=== PATIENT | female | born 1980 | race Caucasian/White ===

== ENCOUNTER 2019-03-26 12:14 | Emergency (ER) | payer SELFPAY ==
[2019-03-26] MEDS ORDERED: ONDANSETRON HCL INJ/PF 4 MG/2 ML SDV IV ONE (13:03)
[2019-03-26] MEDS ORDERED: RINGERS SOLUTION,LACTATED 1,000 ML IV ONE (13:03)
--- NOTE | 2019-03-26 13:06 | ER Document Report ---
ED Medical Screen (RME) - General Chief Complaint: Nausea/Vomiting Stated Complaint: DIZZINESS Time Seen by Provider: 03/26/19 12:47 Notes: Patient is a 39 year old female who presents the emergency department with a chief complaint of nausea, vomiting, diarrhea. Patient she states that her symptoms started this morning. She has been vomiting up bile and small specks of blood. States that she tried to drink some orange juice and water, but can vomiting the amount. She denies any fever. Patient states that her last menstrual cycle was mid February. Patient states that she drinks vodka daily and states that the amount varies. Denies any abdominal surgeries. Denies pain. Exam: Soft nontender abdomen. I have greeted and performed a rapid initial assessment of this patient. A comprehensive ED assessment and evaluation of the patient, analysis of test results and completion of medical decision making process will be conducted by an additional ED providers. TRAVEL OUTSIDE OF THE [place] IN LAST 30 DAYS: No - Related Data Allergies/Adverse Reactions: No Known Allergies Allergy (Verified 03/26/19 12:43) Past Medical History - Past Medical History Cardiac Medical History: Reports: Hx Hypertension Musculoskeltal Medical History: Reports Hx Musculoskeletal Deformity, Reports Hx Musculoskeletal Trauma Traumatic Medical History: Reports: Hx Fractures - right foot Past Surgical History: Reports: Hx Myringotomy - Immunizations Immunizations up to date: Yes Hx Diphtheria, Pertussis, Tetanus Vaccination: Yes - <5 years Physical Exam - Vital signs Vitals: Temp Pulse Resp BP Pulse Ox 97.7 F 133 H 17 146/104 H 100 03/26/19 12:20 03/26/19 12:20 03/26/19 12:20 03/26/19 12:20 03/26/19 12:20 Course - Vital Signs Vital signs: Temp Pulse Resp BP Pulse Ox 97.7 F 133 H 17 146/104 H 100 03/26/19 12:20 03/26/19 12:20 03/26/19 12:20 03/26/19 12:20 03/26/19 12:20
[2019-03-26 13:28] LABS: ABSOLUTE BASOPHILS # (AUTO) 0.1 10^3/uL (0.0-0.2); ABSOLUTE EOSINOPHILS # (AUTO) 0.1 10^3/uL (0.0-0.6); ABSOLUTE LYMPHOCYTES (AUTO) 1.5 10^3/uL (0.5-4.7); ABSOLUTE MONOCYTES (AUTO) 0.5 10^3/uL (0.1-1.4); ABSOLUTE NEUT (AUTO) 11.9 10^3/uL (1.7-8.2); EOSINOPHILS % (AUTO) 0.5 % (0-6); HEMATOCRIT 47.4 % (36.0-47.0); HEMOGLOBIN 16.3 g/dL (12.0-15.5); LYMPHOCYTES % (AUTO) 10.8 % (13-45); MEAN CORPUSCULAR HEMOGLOBIN 34.8 pg (27.0-33.4); MEAN CORPUSCULAR HGB CONC 34.3 g/dL (32.0-36.0); MEAN CORPUSCULAR VOLUME 102 fl (80-97); MONOCYTES % (AUTO) 3.6 % (3-13); PLATELET COUNT 278 10^3/uL (150-450); RED BLOOD COUNT 4.67 10^6/uL (3.72-5.28); RED CELL DISTRIBUTION WIDTH 15.7 % (11.5-14.0); SEGMENTED NEUTROPHILS % (AUTO) 84.1 % (42-78); TOTAL CELLS COUNTED % (AUTO) 100 %; WHITE BLOOD COUNT 14.2 10^3/uL (4.0-10.5)
[2019-03-26 13:42] LABS: ALBUMIN 4.7 g/dL (3.5-5.0); ALKALINE PHOSPHATASE 126 U/L (38-126); ANION GAP 14 (5-19); ASPARTATE AMINO TRANSFERASE 88 U/L (14-36); BILIRUBIN,DIRECT 0.4 mg/dL (0.0-0.4); BILIRUBIN,TOTAL 1.7 mg/dL (0.2-1.3); BLOOD UREA NITROGEN 10 mg/dL (7-20); CALCIUM 9.7 mg/dL (8.4-10.2); CARBON DIOXIDE 29 mmol/L (22-30); CHLORIDE 99 mmol/L (98-107); GLUCOSE 126 mg/dL (75-110); POTASSIUM 4.1 mmol/L (3.6-5.0); TOTAL PROTEIN 8.9 g/dL (6.3-8.2)
[2019-03-26] MEDS ORDERED: METOCLOPRAMIDE HCL INJ/PF 10 MG/2 ML SDV IV ONE (16:31)
[2019-03-26] MEDS ORDERED: LORAZEPAM INJ 2 MG/1 ML VIAL IV ONE (16:32)
--- NOTE | 2019-03-26 18:15 | RADIOLOGY REPORT (SQ) ---
EXAM DESCRIPTION: U/S ABDOMEN LIMITED W/O DOP COMPLETED DATE/TIME: 03/26/2019 6:02 pm REASON FOR STUDY: evaluate GB COMPARISON: None. TECHNIQUE: Dynamic and static grayscale images acquired of the abdomen and recorded on PACS. Additio nal selected color Doppler and spectral images recorded. LIMITATIONS: None. FINDINGS: PANCREAS: No masses. Visualized pancreatic duct normal caliber. LIVER: Slightly increased echogenicity. No masses. LIVER VASCULATURE: Normal directional flow of the main portal vein and hepatic veins. GALLBLADDER: Small gallstone is present. Normal wall thickness. No pericholecystic fluid. ULTRASOUND-DETECTED WELSEY'S SIGN: Negative. INTRAHEPATIC DUCTS AND COMMON DUCT: CBD and intrahepatic ducts normal caliber. No filling defects. INFERIOR VENA CAVA: Normal flow. AORTA: No aneurysm. RIGHT KIDNEY: Normal size, 10.6 cm. Normal echogenicity. No solid or suspicious masses. No hydroneph rosis. No calcifications. PERITONEAL AND RIGHT PLEURAL SPACE: No ascites or effusions. OTHER: No other significant findings. IMPRESSION: Cholelithiasis with no evidence of cholecystitis. Mild fatty infiltration of the liver. TECHNICAL DOCUMENTATION: JOB ID: [id number] [employer]- All Rights Reserved Reading location - IP/workstation name: [email or web address]
[2019-03-26] MEDS ORDERED: LORAZEPAM 1 MG TABLET PO ONE (19:17)
[2019-03-26 19:47] LABS: APPEARANCE,URINE CLOUDY; BILIRUBIN,URINE SMALL (NEGATIVE); COLOR,URINE AMBER; GLUCOSE, URINE NEGATIVE (NEGATIVE); KETONES,URINE TRACE mg/dL (NEGATIVE); LEUKOCYTE ESTERASE,URINE MODERATE (NEGATIVE); NITRITE,URINE NEGATIVE (NEGATIVE); PROTEIN,URINE 100 mg/dL (NEGATIVE); URINE SPECIFIC GRAVITY 1.019
[2019-03-26] MEDS ORDERED: CEFTRIAXONE 1 GM/D5W RTU 1 GM/50 ML RTUPB IV ONE (20:34)
--- NOTE | 2019-03-26 21:31 | ER Document Report ---
Entered by JASON YOUNG SCRIBE 03/26/19 1618 Acting as scribe for:NUVIA SANDERS DO ED General - General Chief Complaint: Nausea/Vomiting Stated Complaint: DIZZINESS Time Seen by Provider: 03/26/19 12:47 Mode of Arrival: Ambulatory Information source: Patient Notes: Patient is a 39-year-old female that presents to the emergency department today with complaints of vomiting, lightheadedness, headache, diarrhea, and feeling shaky. Patient mentions that she drinks heavily daily. Patient states her last drink was last night. Patient states she has never been in alcohol withdrawal to to her knowledge. Patient denies abdominal pain or sick contacts. TRAVEL OUTSIDE OF THE [place] IN LAST 30 DAYS: No - Related Data Allergies/Adverse Reactions: No Known Allergies Allergy (Verified 03/26/19 12:43) Past Medical History - General Information source: Patient - Social History Smoking Status: Never Smoker Cigarette use (# per day): No Frequency of alcohol use: Heavy Lives with: Family Family History: Reviewed & Not Pertinent, CAD, Hyperlipidemia, Hypertension, Malignancy Patient has suicidal ideation: No Patient has homicidal ideation: No - Past Medical History Cardiac Medical History: Reports: Hx Hypertension Musculoskeletal Medical History: Reports Hx Musculoskeletal Deformity, Reports Hx Musculoskeletal Trauma Traumatic Medical History: Reports: Hx Fractures - right foot Past Surgical History: Reports: Hx Myringotomy - Immunizations Immunizations up to date: Yes Hx Diphtheria, Pertussis, Tetanus Vaccination: Yes - <5 years Review of Systems - Review of Systems Constitutional: No symptoms reported EENT: No symptoms reported Cardiovascular: See HPI, Lightheaded Respiratory: No symptoms reported Gastrointestinal: See HPI, Diarrhea, Vomiting. denies: Abdominal pain Genitourinary: No symptoms reported Female Genitourinary: No symptoms reported Musculoskeletal: No symptoms reported Skin: No symptoms reported Hematologic/Lymphatic: No symptoms reported Neurological/Psychological: See HPI, Headaches -: Yes All other systems reviewed and negative Physical Exam - Vital signs Vitals: Temp Pulse Resp BP Pulse Ox 97.7 F 133 H 17 146/104 H 100 03/26/19 12:20 03/26/19 12:20 03/26/19 12:20 03/26/19 12:20 03/26/19 12:20 Interpretation: Hypertensive, Tachycardic - General General appearance: Alert In distress: Mild - Tremulousness - HEENT Head: Normocephalic, Atraumatic Eyes: Normal Pupils: PERRL Mucous membranes: Dry - Respiratory Respiratory status: No respiratory distress Chest status: Nontender Breath sounds: Normal Chest palpation: Normal - Cardiovascular Rhythm: Tachycardia Heart sounds: Normal auscultation Murmur: No - Abdominal Inspection: Normal Distension: No distension Bowel sounds: Normal Tenderness: Nontender Organomegaly: No organomegaly - Back Back: Normal, Nontender - Extremities General upper extremity: Normal inspection, Nontender, Normal color, Normal ROM, Normal temperature General lower extremity: Normal inspection, Nontender, Normal color, Normal ROM, Normal temperature, Normal weight bearing. No: German's sign - Neurological Neuro grossly intact: Yes Cognition: Normal Orientation: AAOx4 [place] Coma Scale Eye Opening: Spontaneous [place] Coma Scale Verbal: Oriented [place] Coma Scale Motor: Obeys Commands [place] Coma Scale Total: 15 Speech: Normal Motor strength normal: LUE, RUE, LLE, RLE Sensory: Normal - Psychological Associated symptoms: Normal affect, Normal mood - Skin Skin Temperature: Warm Skin Moisture: Dry Skin Color: Normal Course - Re-evaluation Re-evalutation: 03/26/19 21:29 Patient is a 39-year-old female who comes in with vomiting and diarrhea. No abdominal pain. Patient drinks vodka daily. Elevated bilirubin. Ultrasound obtained. Cholelithiasis but no cholecystitis. Patient is tremulous, mildly tachycardic and hypertensive. States that she is tried to stop drinking before and got this way. No history of seizures. Patient initially stated that she wanted to drink alcohol and now states that she is uncertain but would like to try to quit. Regardless, symptoms have resolved. No further vomiting or diarrhea. Taking p.o. without difficulty and blood pressure, heart rate down, tremulousness is resolved with Ativan. Patient will be discharged home with medication for nausea as needed, urinary tract infection although the patient has no symptoms. However WBCs and leukoesterase in urine. Urine culture sent. She also be given a prescription for Keflex. Patient wants to go home and would actually prefer to be go home although she has been offered admission. Stable for discharge. Return if any further concerns or symptoms. - Vital Signs Vital signs: Temp Pulse Resp BP Pulse Ox 97.7 F 133 H 15 136/100 H 98 03/26/19 12:20 03/26/19 12:20 03/26/19 20:01 03/26/19 20:01 03/26/19 20:01 - Laboratory Result Diagrams: 03/26/19 13:08 03/26/19 13:08 Laboratory results interpreted by me: 03/26/19 03/26/19 03/26/19 13:08 13:08 19:23 WBC 14.2 H Hgb 16.3 H Hct 47.4 H MCV 102 H MCH 34.8 H RDW 15.7 H Lymph % (Auto) 10.8 L Absolute Neuts (auto) 11.9 H Seg Neutrophils % 84.1 H Glucose 126 H Total Bilirubin 1.7 H AST 88 H Total Protein 8.9 H Urine Protein 100 H Urine Ketones TRACE H Urine Bilirubin SMALL H Urine Urobilinogen 2.0 H Ur Leukocyte Esterase MODERATE H - Diagnostic Test Radiology reviewed: Reports reviewed Discharge - Discharge Clinical Impression: Vomiting Qualifiers: Vomiting type: unspecified Vomiting Intractability: non-intractable Nausea presence: with nausea Qualified Code(s): R11.2 - Nausea with vomiting, unspecified UTI (urinary tract infection) Qualifiers: Urinary tract infection type: site unspecified Hematuria presence: without hematuria Qualified Code(s): N39.0 - Urinary tract infection, site not specified Alcohol withdrawal Qualifiers: Complication of substance-induced condition: uncomplicated Qualified Code(s): F10.230 - Alcohol dependence with withdrawal, uncomplicated Condition: Stable Disposition: HOME, SELF-CARE Instructions: Alcohol Withdrawl ([facility]), Family Physicians / Practices, Urinary Tract Infection ([facility]), Vomiting ([facility]) Prescriptions: Ondansetron [Zofran Odt 4 mg Tablet] 4 mg PO Q4HP PRN #30 tab.rapdis PRN Reason: Lorazepam [Ativan 1 mg Tablet] 1 mg PO Q6HP PRN #12 tablet PRN Reason: Cephalexin Monohydrate [Keflex 500 mg Capsule] 500 mg PO Q6H 10 Days capsule Metoclopramide HCl [Reglan 10 mg Tablet] 1 - 2 tab PO ASDIR PRN #25 tablet PRN Reason: I personally performed the services described in the documentation, reviewed and edited the documentation which was dictated to the scribe in my presence, and it accurately records my words and actions.
[2019-03-26 21:32] VITALS: BP 126/89
== END 2019-03-26 21:31 | disposition home or self-care (01) ==
LOC: ER 12:14
DX: F10.230 Alcohol dependence with withdrawal, uncomplicated (principal); N39.0 Urinary tract infection, site not specified; K80.20 Calculus of gallbladder without cholecystitis without obstruction; R11.2 Nausea with vomiting, unspecified; R42 Dizziness and giddiness; R51 Headache; R19.7 Diarrhea, unspecified; R79.89 Other specified abnormal findings of blood chemistry; I10 Essential (primary) hypertension; R00.0 Tachycardia, unspecified
CPT/HCPCS: 99284; 96361; 96375; 96365; 36415; 87086; 83690; 85025; 87088; 80053; 81001; 87186; 76705; J2765; J2060; J2405; J7120; J0696

== ENCOUNTER 2019-09-04 23:03 | Emergency (ER) | payer SELFPAY ==
[2019-09-04] MEDS ORDERED: ONDANSETRON HCL INJ/PF 4 MG/2 ML SDV IV ONE (23:20)
[2019-09-04] MEDS ORDERED: NORMAL SALINE 1000 ML 1,000 ML IV ONE (23:20)
--- NOTE | 2019-09-04 23:21 | ER Document Report ---
ED General - General Chief Complaint: Nausea/Vomiting/Diarrhea Stated Complaint: NAUSEA Notes: 39-year-old female presents with nausea and diarrhea onset this morning. Vomiting everything up that she tries eat including watermelon. No abdominal pain or cramping no fever no travel no foreign travel no food trucks or other questionable food intake or ill contacts. The patient has NO history of travel to high-risk locations for COVID-19 or contact with persons under investigation for or confirmed positive for COVID-19. TRAVEL OUTSIDE OF THE [place] IN LAST 30 DAYS: No - Related Data Allergies/Adverse Reactions: No Known Allergies Allergy (Verified 03/26/19 12:43) Home Medications: ADVIL Past Medical History - Social History Smoking Status: Never Smoker Family History: Reviewed & Not Pertinent, CAD, Hyperlipidemia, Hypertension, Malignancy Patient has suicidal ideation: No Patient has homicidal ideation: No - Past Medical History Cardiac Medical History: Reports: Hx Hypertension Musculoskeletal Medical History: Reports Hx Musculoskeletal Deformity, Reports Hx Musculoskeletal Trauma Traumatic Medical History: Reports: Hx Fractures - right foot Past Surgical History: Reports: Hx Myringotomy - Immunizations Immunizations up to date: Yes Hx Diphtheria, Pertussis, Tetanus Vaccination: Yes - <5 years Review of Systems - Review of Systems Notes: REVIEW OF SYSTEMS GEN: Denies fever, chills, weight loss ENT: Denies sore throat, nasal discharge, ear pain EYES: Denies blurry vision, eye pain, discharge CV: Denies chest pain, palpitations, edema RESP: Denies cough, shortness of breath, wheezing GI: See HPI a MSK: Denies joint pain/swelling, edema, SKIN: Denies rash, skin lesions LYMPH: Denies swollen glands/lymph nodes NEURO: Denies headache, focal weakness or numbness, dizziness PSYCH: Denies depression, suicidal or homicidal ideation PHYSICAL EXAMINATION General: No acute distress, well-nourished Head: Atraumatic, normocephalic ENT: Mouth normal, oropharynx moist, no exudates or tonsillar enlargement Eyes: Conjunctiva normal, pupils equal, lids normal Neck: No JVD, supple, no guarding CVS: Normal rate, regular rhythm, no murmurs Resp: No resp distress, equal and normal breath sounds bilaterally GI: Nondistended, soft, no tenderness to palpation, no rebound or guarding Ext: No deformities, no edema, normal range of motion in upper and lower ext Back: No CVA or midline TTP Skin: No rash, warm Lymphatic: No lymphadeopathy noted Neuro: Awake, alert. Face symmetric. GCS 15. Physical Exam - Vital signs Vitals: Pulse Ox 100 09/04/19 23:35 Course - Re-evaluation Re-evalutation: 09/04/19 23:21 Patient presents with nausea vomiting diarrhea with mild dehydration. Will place IV, treat symptoms and check labs but this seems very much like a contagious gastroenteritis or foodborne illness. He has no abdominal tenderness or indication for imaging at this point and no risk factors for C. difficile. 09/19/19 10:07 Labs unremarkable except mild lo K. Nontender on rpt Nayely PO DC home - Vital Signs Vital signs: Temp Pulse Resp BP Pulse Ox 98.1 F 96 17 146/94 H 100 09/05/19 00:45 09/05/19 00:45 09/05/19 00:45 09/05/19 00:45 09/05/19 00:45 - Laboratory Result Diagrams: 09/04/19 23:34 09/04/19 23:34 Laboratory results interpreted by me: 09/04/19 09/04/19 23:34 23:34 MCH 34.0 H RDW 14.8 H Potassium 3.3 L Chloride 97 L Discharge - Discharge Clinical Impression: Vomiting and diarrhea Condition: Good Disposition: HOME, SELF-CARE Instructions: Vomiting ([facility]) Additional Instructions: Follow-up in 3 to 5 days Prescriptions: Ondansetron [Ondansetron Odt] 8 mg PO Q8HP PRN #7 tab.rapdis PRN Reason: Forms: Return to Work
[2019-09-04 23:47] LABS: ABSOLUTE BASOPHILS # (AUTO) 0.1 10^3/uL (0.0-0.2); ABSOLUTE LYMPHOCYTES (AUTO) 1.5 10^3/uL (0.5-4.7); ABSOLUTE MONOCYTES (AUTO) 0.5 10^3/uL (0.1-1.4); ABSOLUTE NEUT (AUTO) 6.7 10^3/uL (1.7-8.2); BASOPHILS % (AUTO) 0.7 % (0-2); EOSINOPHILS % (AUTO) 0.2 % (0-6); HEMATOCRIT 43.2 % (36.0-47.0); HEMOGLOBIN 15.1 g/dL (12.0-15.5); MEAN CORPUSCULAR VOLUME 97 fl (80-97); MONOCYTES % (AUTO) 5.5 % (3-13); PLATELET COUNT 185 10^3/uL (150-450); RED BLOOD COUNT 4.45 10^6/uL (3.72-5.28); RED CELL DISTRIBUTION WIDTH 14.8 % (11.5-14.0); SEGMENTED NEUTROPHILS % (AUTO) 76.6 % (42-78); TOTAL CELLS COUNTED % (AUTO) 100 %; WHITE BLOOD COUNT 8.7 10^3/uL (4.0-10.5)
[2019-09-05 00:08] LABS: ANION GAP 15 (5-19); BLOOD UREA NITROGEN 8 mg/dL (7-20); CARBON DIOXIDE 28 mmol/L (22-30); CHLORIDE 97 mmol/L (98-107); GLUCOSE 101 mg/dL (75-110); POTASSIUM 3.3 mmol/L (3.6-5.0)
[2019-09-05 00:46] VITALS: BP 146/94
== END 2019-09-05 00:45 | disposition home or self-care (01) ==
LOC: ER 23:03
DX: R11.2 Nausea with vomiting, unspecified (principal); R19.7 Diarrhea, unspecified; E86.0 Dehydration; I10 Essential (primary) hypertension; Z79.1 Long term (current) use of non-steroidal anti-inflammatories (NSAID)
CPT/HCPCS: 99284; 96361; 96374; 36415; 85025; 80048; J2405; J7030

== ENCOUNTER 2019-10-15 04:03 | Emergency (ER) | payer SELFPAY ==
[2019-10-15] MEDS ORDERED: ONDANSETRON HCL INJ/PF 4 MG/2 ML SDV IV ONE (05:34)
--- NOTE | 2019-10-15 05:37 | ER Document Report ---
ED General - General Chief Complaint: Vomiting Stated Complaint: COUGH Time Seen by Provider: 10/15/19 05:19 Notes: 39-year-old healthy female presents to the emergency department with cyclic vomiting and chest pressure. Patient states she was sent home from work because she has had persistent vomiting for the last several hours. Patient states symptoms started at 7 PM. Patient is currently nauseated. Patient states that she also has chest pressure across her anterior chest that is slightly worse with breathing. Pain fevers or chills, denies any acute shortness of breath, denies diarrhea, denies urinary symptoms. No other complaints TRAVEL OUTSIDE OF THE [place] IN LAST 30 DAYS: No - Related Data Allergies/Adverse Reactions: No Known Allergies Allergy (Verified 03/26/19 12:43) Past Medical History - Social History Smoking Status: Current Every Day Smoker Chew tobacco use (# tins/day): No Frequency of alcohol use: Social Drug Abuse: Marijuana Family History: Reviewed & Not Pertinent, CAD, Hyperlipidemia, Hypertension, Malignancy Patient has suicidal ideation: No Patient has homicidal ideation: No - Past Medical History Cardiac Medical History: Reports: Hx Hypertension Musculoskeletal Medical History: Reports Hx Musculoskeletal Deformity, Reports Hx Musculoskeletal Trauma Traumatic Medical History: Reports: Hx Fractures - right foot Past Surgical History: Reports: Hx Myringotomy - Immunizations Immunizations up to date: Yes Hx Diphtheria, Pertussis, Tetanus Vaccination: Yes - <5 years Review of Systems - Review of Systems Constitutional: See HPI EENT: No symptoms reported Cardiovascular: See HPI Respiratory: See HPI Gastrointestinal: See HPI Genitourinary: No symptoms reported Female Genitourinary: No symptoms reported Musculoskeletal: See HPI Skin: No symptoms reported Hematologic/Lymphatic: No symptoms reported Neurological/Psychological: No symptoms reported Physical Exam - Vital signs Vitals: Temp Pulse Resp BP Pulse Ox 98.4 F 101 H 18 136/97 H 100 10/15/19 04:10 10/15/19 04:10 10/15/19 04:10 10/15/19 04:10 10/15/19 04:10 - Notes Notes: PHYSICAL EXAMINATION: Reviewed vital signs and charting by RN GENERAL: Alert, interacts well. No acute distress. HEAD: Normocephalic, atraumatic. EYES: Pupils equal and round. Extraocular movements intact. ENT: Oral mucosa moist, tongue midline. NECK: Full range of motion. Trachea midline. LUNGS: Clear to auscultation bilaterally, no wheezes, rales, or rhonchi. No respiratory distress. HEART: Very slightly tachycardic regular rhythm. No murmur ABDOMEN: soft, right upper quadrant tenderness to palpation, negative Wright sign, mild epigastric tenderness to palpation. No distention. Bowel sounds present EXTREMITIES: Moves all 4 extremities spontaneously. No edema, No cyanosis. PSYCH: Normal affect, normal mood. SKIN: Warm, dry, normal turgor. No rashes or lesions noted. Course - Re-evaluation Re-evalutation: 10/15/19 05:35 Patient is well-appearing and nontoxic. She does appear to be mildly dehydrated as she is mildly tachycardic and has had several episodes of vomiting. Differential includes enteritis versus hyperemesis secondary to cannabinoid use. I have very low suspicion for cardiac ischemia or cardiac etiology, but I will add a troponin. 10/15/19 06:48 Patient lab work returned and she has a total bilirubin of 3.2 and a direct bilirubin of 1.1. Lipase was added and a right upper quadrant ultrasound ordered to assess for a biliary pathology. 10/15/19 08:08 Patient signed out to Jesse Lowery NP. - Vital Signs Vital signs: Temp Pulse Resp BP Pulse Ox 98.4 F 101 H 18 136/97 H 100 10/15/19 04:25 10/15/19 04:10 10/15/19 04:10 10/15/19 04:10 10/15/19 04:10 - Laboratory Result Diagrams: 10/15/19 05:46 10/15/19 05:46 Laboratory results interpreted by me: 10/15/19 10/15/19 10/15/19 05:46 05:46 06:15 MCV 100 H MCH 35.5 H RDW 18.2 H Sodium 135.9 L Chloride 96 L Total Bilirubin 3.2 H Direct Bilirubin 1.1 H AST 147 H ALT 89 H Urine Protein 100 H Urine Ketones TRACE H Urine Blood SMALL H Urine Nitrite POSITIVE H Urine Bilirubin SMALL H Urine Urobilinogen 4.0 H Ur Leukocyte Esterase MODERATE H Discharge - Discharge Clinical Impression: Urinary tract infection Qualifiers: Urinary tract infection type: acute cystitis Hematuria presence: with hematuria Qualified Code(s): N30.01 - Acute cystitis with hematuria Vomiting Qualifiers: Vomiting type: unspecified Vomiting Intractability: non-intractable Nausea presence: with nausea Qualified Code(s): R11.2 - Nausea with vomiting, unspecified Abdominal pain Qualifiers: Abdominal location: upper abdomen, unspecified Qualified Code(s): R10.10 - Upper abdominal pain, unspecified Condition: Good Disposition: HOME, SELF-CARE Prescriptions: Cephalexin Monohydrate [Keflex 500 mg Capsule] 500 mg PO Q12H #20 capsule
[2019-10-15] MEDS ORDERED: NORMAL SALINE 1000 ML 1,000 ML IV ONE ×2 (05:58→07:22)
[2019-10-15 05:59] LABS: ABSOLUTE BASOPHILS # (AUTO) 0.1 10^3/uL (0.0-0.2); ABSOLUTE LYMPHOCYTES (AUTO) 1.6 10^3/uL (0.5-4.7); ABSOLUTE MONOCYTES (AUTO) 0.6 10^3/uL (0.1-1.4); ABSOLUTE NEUT (AUTO) 6.7 10^3/uL (1.7-8.2); BASOPHILS % (AUTO) 0.8 % (0-2); EOSINOPHILS % (AUTO) 0.3 % (0-6); HEMATOCRIT 42.1 % (36.0-47.0); LYMPHOCYTES % (AUTO) 17.6 % (13-45); MEAN CORPUSCULAR HEMOGLOBIN 35.5 pg (27.0-33.4); MEAN CORPUSCULAR HGB CONC 35.6 g/dL (32.0-36.0); MEAN CORPUSCULAR VOLUME 100 fl (80-97); MONOCYTES % (AUTO) 6.5 % (3-13); PLATELET COUNT 221 10^3/uL (150-450); RED BLOOD COUNT 4.23 10^6/uL (3.72-5.28); RED CELL DISTRIBUTION WIDTH 18.2 % (11.5-14.0); SEGMENTED NEUTROPHILS % (AUTO) 74.8 % (42-78); TOTAL CELLS COUNTED % (AUTO) 100 %
[2019-10-15 06:18] LABS: ALBUMIN 4.2 g/dL (3.5-5.0); ALKALINE PHOSPHATASE 96 U/L (38-126); ANION GAP 10 (5-19); ASPARTATE AMINO TRANSFERASE 147 U/L (14-36); BILIRUBIN,DIRECT 1.1 mg/dL (0.0-0.4); BILIRUBIN,TOTAL 3.2 mg/dL (0.2-1.3); BLOOD UREA NITROGEN 9 mg/dL (7-20); CALCIUM 9.1 mg/dL (8.4-10.2); CARBON DIOXIDE 30 mmol/L (22-30); CHLORIDE 96 mmol/L (98-107); GLUCOSE 86 mg/dL (75-110); POTASSIUM 3.6 mmol/L (3.6-5.0); TOTAL PROTEIN 7.5 g/dL (6.3-8.2)
[2019-10-15 06:49] LABS: APPEARANCE,URINE CLOUDY; BILIRUBIN,URINE SMALL (NEGATIVE); GLUCOSE, URINE NEGATIVE (NEGATIVE); KETONES,URINE TRACE mg/dL (NEGATIVE); LEUKOCYTE ESTERASE,URINE MODERATE (NEGATIVE); NITRITE,URINE POSITIVE (NEGATIVE); PROTEIN,URINE 100 mg/dL (NEGATIVE)
[2019-10-15 06:50] LABS: COLOR,URINE DARK YELLOW
--- NOTE | 2019-10-15 07:05 | RADIOLOGY REPORT (SQ) ---
AP Portable chest: 10/15/2019 6:04 AM CDT History: 39-year old patient with chest pain. Comparison: None available Findings: The cardiomediastinal silhouette is normal in size. No pneumothorax is seen. No acute airspace opacities are seen. No discrete pleural effusion is apparent. Impression: No acute airspace opacities are seen.
[2019-10-15] MEDS ORDERED: CEFTRIAXONE 1 GM/D5W RTU 1 GM/50 ML RTUPB IV ONE (07:23)
--- NOTE | 2019-10-15 08:27 | RADIOLOGY REPORT (SQ) ---
EXAM DESCRIPTION: U/S ABDOMEN LTD W/DOPPLER IMAGES COMPLETED DATE/TIME: 10/15/2019 7:31 am REASON FOR STUDY: RUQ/epigastric abd pain COMPARISON: None. TECHNIQUE: Dynamic and static grayscale images acquired of the abdomen and recorded on PACS. Additio nal selected color Doppler and spectral images recorded. Note: Exam does not meet criteria for a complete doppler/duplex scan LIMITATIONS: Study limited due to acoustical interference from fat or from air in the bowel. FINDINGS: PANCREAS: No visualized masses. Duct normal caliber as seen. LIVER: Echotexture is coarse with increased echogenicity consistent with fatty infiltration. LIVER VASCULATURE: Normal directional flow of the main portal vein and hepatic veins. GALLBLADDER: Gallstones. Normal wall thickness. No pericholecystic fluid. ULTRASOUND-DETECTED WESLEY'S SIGN: Negative. INTRAHEPATIC DUCTS AND COMMON DUCT: CBD and intrahepatic ducts normal caliber. No filling defects. INFERIOR VENA CAVA: Normal flow. AORTA: No aneurysm. RIGHT KIDNEY: Normal size. Normal echogenicity. No solid or suspicious masses. No hydronephrosis. No calcifications. PERITONEAL AND PLEURAL SPACES: No ascites or effusions. OTHER: No other significant finding. IMPRESSION: GALLSTONES. FATTY INFILTRATION OF THE LIVER. NO OTHER SIGNIFICANT FINDING IN THE VISUAL IZED ABDOMEN. TECHNICAL DOCUMENTATION: JOB ID: [id number] 2010 [employer]- All Rights Reserved Reading location - IP/workstation name: [email or web address]
--- NOTE | 2019-10-15 09:08 | ER Document Report ---
Doctor's Note Notes: 10/15/19 09:06 I evaluated the patient. She reports onset of nausea vomiting yesterday. No dysuria. Denies abdominal pain. I did review the prior records. Patient is noted to have a UTI she is currently receiving IV fluids and Rocephin. She states nausea is improved. On my exam patient has no abdominal pain that is reproducible especially in the lower abdomen or in the right upper quadrant. She was noted to have gallstones on her ultrasound without signs of cholecystitis. I discussed this at length with her. She will likely need outpatient surgical referral. She has no PCP. We will orally challenge the patient at this time, if she is able to keep fluids down will keep on antibiotics, nausea medication and plan for discharge to follow-up with PCP initially. Patient is in agreement with this plan
[2019-10-15 10:24] VITALS: BP 144/85
--- NOTE | 2019-10-15 15:28 | EKG REPORT ---
SEVERITY:- BORDERLINE ECG - SINUS RHYTHM BORDERLINE T ABNORMALITIES, DIFFUSE LEADS BORDERLINE PROLONGED QT INTERVAL : Confirmed by: Donna Marcelino MD 15-Oct-2019 15:27:39
== END 2019-10-15 10:26 | disposition home or self-care (01) ==
LOC: ER 04:03
DX: K80.20 Calculus of gallbladder without cholecystitis without obstruction (principal); N30.01 Acute cystitis with hematuria; R11.2 Nausea with vomiting, unspecified; R07.9 Chest pain, unspecified; R10.10 Upper abdominal pain, unspecified; E86.0 Dehydration; R00.0 Tachycardia, unspecified
CPT/HCPCS: 93005; 99285; 96361; 96375; 96365; 36415; 87040; 83690; 85025; 81025; 80053; 81001; 71045; 76705; 93976; 93010; J2405; J7030; J0696

== ENCOUNTER 2019-11-03 13:17 | Emergency (ER) | payer SELFPAY ==
[2019-11-03] MEDS ORDERED: NORMAL SALINE 1000 ML 1,000 ML IV ONE (13:45)
[2019-11-03] MEDS ORDERED: ONDANSETRON HCL INJ/PF 4 MG/2 ML SDV IV ONE (13:45)
[2019-11-03 13:53] LABS: ABSOLUTE BASOPHILS # (AUTO) 0.1 10^3/uL (0.0-0.2); ABSOLUTE EOSINOPHILS # (AUTO) 0.1 10^3/uL (0.0-0.6); ABSOLUTE MONOCYTES (AUTO) 0.5 10^3/uL (0.1-1.4); ABSOLUTE NEUT (AUTO) 5.8 10^3/uL (1.7-8.2); BASOPHILS % (AUTO) 1.3 % (0-2); EOSINOPHILS % (AUTO) 0.9 % (0-6); HEMATOCRIT 43.5 % (36.0-47.0); HEMOGLOBIN 15.4 g/dL (12.0-15.5); LYMPHOCYTES % (AUTO) 31.3 % (13-45); MEAN CORPUSCULAR HEMOGLOBIN 35.9 pg (27.0-33.4); MEAN CORPUSCULAR HGB CONC 35.4 g/dL (32.0-36.0); MEAN CORPUSCULAR VOLUME 101 fl (80-97); MONOCYTES % (AUTO) 5.3 % (3-13); PLATELET COUNT 360 10^3/uL (150-450); RED BLOOD COUNT 4.29 10^6/uL (3.72-5.28); RED CELL DISTRIBUTION WIDTH 17.4 % (11.5-14.0); SEGMENTED NEUTROPHILS % (AUTO) 61.2 % (42-78); TOTAL CELLS COUNTED % (AUTO) 100 %; WHITE BLOOD COUNT 9.5 10^3/uL (4.0-10.5)
[2019-11-03 14:02] LABS: APPEARANCE,URINE CLOUDY; BILIRUBIN,URINE SMALL (NEGATIVE); COLOR,URINE AMBER; GLUCOSE, URINE NEGATIVE (NEGATIVE); KETONES,URINE TRACE mg/dL (NEGATIVE); LEUKOCYTE ESTERASE,URINE MODERATE (NEGATIVE); NITRITE,URINE NEGATIVE (NEGATIVE); PROTEIN,URINE 100 mg/dL (NEGATIVE); URINE SPECIFIC GRAVITY 1.019
[2019-11-03 14:12] LABS: ALBUMIN 4.2 g/dL (3.5-5.0); ALKALINE PHOSPHATASE 100 U/L (38-126); ANION GAP 13 (5-19); ASPARTATE AMINO TRANSFERASE 153 U/L (14-36); BILIRUBIN,DIRECT 0.5 mg/dL (0.0-0.4); BILIRUBIN,TOTAL 1.5 mg/dL (0.2-1.3); BLOOD UREA NITROGEN 9 mg/dL (7-20); CALCIUM 9.2 mg/dL (8.4-10.2); CARBON DIOXIDE 29 mmol/L (22-30); CHLORIDE 97 mmol/L (98-107); GLUCOSE 94 mg/dL (75-110); POTASSIUM 3.5 mmol/L (3.6-5.0); TOTAL PROTEIN 7.7 g/dL (6.3-8.2)
[2019-11-03] MEDS ORDERED: FAMOTIDINE INJ/PF 20 MG/2 ML SDV IV ONE (14:15)
[2019-11-03] MEDS ORDERED: LORAZEPAM INJ 2 MG/1 ML VIAL IV ONE (14:15)
--- NOTE | 2019-11-03 14:24 | ER Document Report ---
ED General - General Chief Complaint: Weakness Stated Complaint: WEAKNESS,VOMITING,NAUSEA Time Seen by Provider: 11/03/19 13:46 TRAVEL OUTSIDE OF THE [place] IN LAST 30 DAYS: No - HPI Notes: Chief complaint: Weakness, anxiety and nausea HPI: 39-year-old female seen in this emergency department about 3 weeks ago with GI symptoms and found to have a UTI, cholelithiasis and some changes consistent with fatty infiltration of the liver on ultrasound. She took an oral antibiotic briefly but says she had to stop this because it "just made her feel bad". She is back now with flulike symptoms. 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 She has had no direct contact with anyone known to be positive for COVID-19. Says that she may have had a fever but did not take this. She felt somewhat chilled overnight. Nauseated without vomiting. Dull headache. Diffuse myalgias. No dysuria. Patient admits that she drinks 3 to 4 ounces of vodka each evening. She denies any drug use. Patient felt ill at work today and had her son drive her here. - Related Data Allergies/Adverse Reactions: No Known Allergies Allergy (Verified 03/26/19 12:43) Past Medical History - General Information source: Patient - Social History Smoking Status: Current Every Day Smoker Frequency of alcohol use: Heavy Drug Abuse: None Lives with: Family Family History: Reviewed & Not Pertinent, CAD, Hyperlipidemia, Hypertension, Malignancy - Past Medical History Cardiac Medical History: Reports: Hx Hypertension Endocrine Medical History: Reports: None Renal/ Medical History: Reports: Other - Recent treatment for UTI GI Medical History: Reports: Other - History cholelithiasis Musculoskeletal Medical History: Reports Hx Musculoskeletal Deformity, Reports Hx Musculoskeletal Trauma Traumatic Medical History: Reports: Hx Fractures - right foot Past Surgical History: Reports: Hx Myringotomy - Immunizations Immunizations up to date: Yes Hx Diphtheria, Pertussis, Tetanus Vaccination: Yes - <5 years Review of Systems - Review of Systems Notes: Constitutional: As per HPI. HENT: Negative for sore throat. Eyes: Negative for visual changes. Cardiovascular: Negative for chest pain. Respiratory: Negative for shortness of breath. No cough or sputum production. Gastrointestinal: As per HPI. Genitourinary: Negative for dysuria. Musculoskeletal: Diffuse myalgias. Skin: Negative for rash. Neurological: Dull headache and diffuse weakness. No focal weakness or numbness. 10 point ROS negative except as marked above and in HPI. Physical Exam - Vital signs Vitals: Temp Pulse Resp BP Pulse Ox 97.4 F 102 H 16 141/95 H 100 11/03/19 13:25 11/03/19 13:25 11/03/19 13:25 11/03/19 13:25 11/03/19 13:25 - Notes Notes: Remote Exam Using Telemedicine System GENERAL: Middle-age obese female who does not appear toxic but obviously does not feel well. SKIN: no rashes. HEAD: Normocephalic atraumatic. EYES: PERRL. EOMI. Conjunctivae and sclerae clear. NOSE: CLEAR. MOUTH: Moist mucosa. Good dentition. No stridor or edema. No drooling. NECK: Full ROM. No visible masses or thyromegaly. No JVD. BACK: Symmetrical. CHEST: Respirations unlabored. Expands symmetrical. ABDOMEN: Obese. Non-distended. No tenderness when I have the patient press over 4 quadrants of her abdomen and epigastrium. GENITALIA: Deferred. EXTREMITIES: No edema. NEUROLOGICAL: GCS 15. Alert and oriented x3. Mild tremor. Normal gait. Fluent speech. Cranial nerves II through XII intact. Motor and cerebellar normal. PSYCHIATRIC: Appropriate affect. Course - Re-evaluation Re-evalutation: 11/03/19 19:43 Patient's history reveals substantial alcohol intake chronically. Her transaminases are somewhat elevated similar to values noted on prior visit. She clearly had fatty changes in the liver on her previous gallbladder ultrasound. She does have some gallstones but her abdomen is nontender and she has no fever or elevation of white count. Also she is noted to have macrocytosis on her CBC additionally suggesting adverse effects of chronic alcohol ingestion. Her magnesium and potassium are both marginally low. Both of these were supplemented in the emergency department. She feels much better after these interventions and will be discharged home and given a work note for the next 3 days. Strongly advised to curtail her alcohol intake. - Vital Signs Vital signs: Temp Pulse Resp BP Pulse Ox 97.8 F 90 18 139/76 H 97 11/03/19 18:00 11/03/19 18:00 11/03/19 18:00 11/03/19 18:00 11/03/19 18:00 - Laboratory Result Diagrams: 11/03/19 13:40 11/03/19 13:40 Laboratory results interpreted by me: 11/03/19 11/03/19 11/03/19 13:40 13:40 13:40 MCV 101 H MCH 35.9 H RDW 17.4 H Potassium 3.5 L Chloride 97 L Total Bilirubin 1.5 H Direct Bilirubin 0.5 H AST 153 H ALT 98 H Urine Protein 100 H Urine Ketones TRACE H Urine Bilirubin SMALL H Urine Urobilinogen 4.0 H Ur Leukocyte Esterase MODERATE H Discharge - Discharge Clinical Impression: Alcoholic hepatitis without ascites, Hypokalemia, Hypomagnesemia Condition: Stable Disposition: HOME, SELF-CARE Additional Instructions: Alcoholic Hepatitis You have inflammation of the liver caused by alcohol. This is called "alcoholic hepatitis." Symptoms can include malaise, fatigue, lack of appetite, nausea and vomiting, dark urine, and jaundice. In the long run, alcohol damages the liver to cause cirrhosis. There is no cure for alcoholic hepatitis. The inflammation will go away if you stop drinking. While you are ill, you may receive medication to make you more comfortable. Do not drink alcohol, and don't take any drug or medication not approved by your doctor. Rest and try to eat a healthy diet. Call the doctor if vomiting or abdominal pain become severe. Prescriptions have been written for you today. You will be provided a work note for the next 3 days. Follow-up with your primary care or referral doctor as soon as possible. Return here as needed for new or worsening symptoms: Pain that is worsening or unimproved Uncontrolled vomiting High fever or shaking chills Overall worsening Prescriptions: Magnesium Oxide 400 mg PO DAILY #7 tablet Potassium Chloride 20 meq PO BID 7 Days #14 tab.er.prt Ondansetron [Zofran Odt 4 mg Tablet] 1 - 2 tab PO Q4H PRN #15 tab.rapdis PRN Reason: For Nausea/Vomiting Forms: Return to Work
[2019-11-03] MEDS ORDERED: POTASSIUM CHLORIDE 10 MEQ TABLET.ER PO ONE (16:30)
[2019-11-03] MEDS ORDERED: CEFTRIAXONE 1 GM/D5W RTU 1 GM/50 ML RTUPB IV ONE (16:30)
[2019-11-03] MEDS: MAGNESIUM SULFATE/D5W 1 GM/100 ML RTUPB IV SCH ×2 (16:48→17:51)
[2019-11-03 19:50] VITALS: BP 127/84
--- NOTE | 2019-11-03 22:19 | EKG REPORT ---
SEVERITY:- BORDERLINE ECG - SINUS TACHYCARDIA PROBABLE LEFT ATRIAL ABNORMALITY BORDERLINE T ABNORMALITIES, DIFFUSE LEADS : Confirmed by: Ubaldo Maradiaga 03-Nov-2019 22:18:39
== END 2019-11-03 20:06 | disposition home or self-care (01) ==
LOC: ER 13:17
DX: K70.11 Alcoholic hepatitis with ascites (principal); E87.6 Hypokalemia; E83.42 Hypomagnesemia; R53.1 Weakness; R11.2 Nausea with vomiting, unspecified; F41.9 Anxiety disorder, unspecified; R51 Headache; R25.1 Tremor, unspecified; M79.10 Myalgia, unspecified site; F10.10 Alcohol abuse, uncomplicated; I10 Essential (primary) hypertension; F17.200 Nicotine dependence, unspecified, uncomplicated
CPT/HCPCS: 93005; 99283; 96361; 96375; 96365; 96367; 36415; 83690; 83735; 85025; 81025; 80053; 81001; 84484; 93010; J2060; J3475; J2405; J7030; S0028; J0696

== ENCOUNTER 2019-12-12 09:54 | Inpatient (IN) | payer SELFPAY ==
[2019-12-12 10:55] LABS: ABSOLUTE BASOPHILS # (AUTO) 0.1 10^3/uL (0.0-0.2); ABSOLUTE EOSINOPHILS # (AUTO) 0.1 10^3/uL (0.0-0.6); ABSOLUTE LYMPHOCYTES (AUTO) 2.1 10^3/uL (0.5-4.7); ABSOLUTE MONOCYTES (AUTO) 0.8 10^3/uL (0.1-1.4); ABSOLUTE NEUT (AUTO) 8.3 10^3/uL (1.7-8.2); BASOPHILS % (AUTO) 0.6 % (0-2); EOSINOPHILS % (AUTO) 0.8 % (0-6); HEMATOCRIT 39.9 % (36.0-47.0); LYMPHOCYTES % (AUTO) 18.6 % (13-45); MEAN CORPUSCULAR HEMOGLOBIN 35.1 pg (27.0-33.4); MEAN CORPUSCULAR HGB CONC 35.1 g/dL (32.0-36.0); MEAN CORPUSCULAR VOLUME 100 fl (80-97); MONOCYTES % (AUTO) 6.7 % (3-13); PLATELET COUNT 334 10^3/uL (150-450); RED BLOOD COUNT 3.99 10^6/uL (3.72-5.28); RED CELL DISTRIBUTION WIDTH 14.6 % (11.5-14.0); SEGMENTED NEUTROPHILS % (AUTO) 73.3 % (42-78); TOTAL CELLS COUNTED % (AUTO) 100 %; WHITE BLOOD COUNT 11.3 10^3/uL (4.0-10.5)
[2019-12-12 10:57] LABS: ALBUMIN 4.1 g/dL (3.5-5.0); ALKALINE PHOSPHATASE 75 U/L (38-126); ANION GAP 18 (5-19); ASPARTATE AMINO TRANSFERASE 77 U/L (14-36); BILIRUBIN,DIRECT 1.2 mg/dL (0.0-0.4); BILIRUBIN,TOTAL 2.4 mg/dL (0.2-1.3); BLOOD UREA NITROGEN 14 mg/dL (7-20); CALCIUM 9.6 mg/dL (8.4-10.2); CARBON DIOXIDE 27 mmol/L (22-30); CHLORIDE 93 mmol/L (98-107); CREATINE KINASE 26 U/L (30-135); GLUCOSE 91 mg/dL (75-110); POTASSIUM 3.1 mmol/L (3.6-5.0); TOTAL PROTEIN 7.5 g/dL (6.3-8.2)
[2019-12-12 11:08] LABS: CREATINE KINASE MB 0.22 ng/mL (<4.55)
[2019-12-12 11:17] LABS: TROPONIN I < 0.012 ng/mL
[2019-12-12] MEDS ORDERED: ONDANSETRON HCL INJ/PF 4 MG/2 ML SDV IV ONE (11:31)
--- NOTE | 2019-12-12 11:34 | RADIOLOGY REPORT (SQ) ---
EXAM DESCRIPTION: CHEST SINGLE VIEW IMAGES COMPLETED DATE/TIME: 12/12/2019 11:24 am REASON FOR STUDY: chest pain COMPARISON: 10/15/2019 EXAM PARAMETERS: NUMBER OF VIEWS: One view. TECHNIQUE: Single frontal radiographic view of the chest acquired. RADIATION DOSE: NA LIMITATIONS: None. FINDINGS: LUNGS AND PLEURA: No opacities, masses or pneumothorax. No pleural effusion. MEDIASTINUM AND HILAR STRUCTURES: No masses. Contour normal. HEART AND VASCULAR STRUCTURES: Heart normal in size. Normal vasculature. BONES: No acute findings. HARDWARE: None in the chest. OTHER: No other significant finding. IMPRESSION: NO ACUTE RADIOGRAPHIC FINDING IN THE CHEST. TECHNICAL DOCUMENTATION: JOB ID: [id number] 2010 [employer]- All Rights Reserved Reading location - IP/workstation name: [email or web address]
[2019-12-12] MEDS ORDERED: NORMAL SALINE 1000 ML 1,000 ML IV ONE ×2 (13:29→17:20)
[2019-12-12] MEDS ORDERED: POTASSIUM CHLORIDE 10 MEQ TABLET.ER PO ONE (13:29)
--- NOTE | 2019-12-12 13:31 | ER Document Report ---
ED General <RENÉ REYES - Last Filed: 12/12/19 22:00> - General Mode of Arrival: Medic Information source: Patient, Friend TRAVEL OUTSIDE OF THE [place] IN LAST 30 DAYS: No - HPI Onset: This morning Onset/Duration: Worse Quality of pain: No pain Associated symptoms: Nausea, Weakness. denies: Chest pain, Nonproductive cough, Productive cough, Diarrhea, Fever, Headache, Vomiting, Shortness of breath Exacerbated by: Denies Relieved by: Denies Similar symptoms previously: No Recently seen / treated by doctor: No <SYEDA SAM - Last Filed: 12/13/19 20:32> - General Chief Complaint: Chest Pressure Stated Complaint: NUMBNESS Time Seen by Provider: 12/12/19 13:03 Notes: Patient presents with vague complaints. Patient complains of malaise and weakness. Patient states that her legs are numb feeling and she has tingling to her lips. Patient states that today she has not been able to walk as she is afraid that she is going to fall. Patient states yesterday she was ambulating without difficulty. Patient reports some mild nausea without vomiting or diarrhea. Patient denies any shortness of breath. Patient denies any chest pain, abdominal pain or back pain symptoms. EMS report states that patient had chest pain although patient denies this at this time. 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 Lives with: Family Family History: Reviewed & Not Pertinent, CAD, Hyperlipidemia, Hypertension, Malignancy Patient has homicidal ideation: No - Medical History Medical History: Negative Musculoskeletal Medical History: Reports Hx Musculoskeletal Deformity, Reports Hx Musculoskeletal Trauma Traumatic Medical History: Reports: Hx Fractures - right foot Past Surgical History: Reports: Hx Myringotomy - Immunizations Immunizations up to date: Yes Hx Diphtheria, Pertussis, Tetanus Vaccination: Yes - <5 years <SYEDA SAM - Last Filed: 12/13/19 20:32> Review of Systems - Review of Systems Constitutional: Malaise, Weakness. denies: Fever, Recent illness EENT: No symptoms reported. denies: Throat pain Cardiovascular: No symptoms reported. denies: Chest pain, Dizziness, Lightheaded Respiratory: No symptoms reported. denies: Cough, Short of breath Gastrointestinal: Nausea. denies: Abdominal pain, Diarrhea, Vomiting Genitourinary: No symptoms reported. denies: Dysuria, Flank pain Female Genitourinary: Vaginal bleeding Musculoskeletal: Other - Weakness to lower extremities Skin: No symptoms reported Hematologic/Lymphatic: No symptoms reported Neurological/Psychological: Weakness, Gait changes, Numbness - Bilateral lower extremities, Tingling - Lips <SYEDA SAM - Last Filed: 12/13/19 20:32> Physical Exam - General General appearance: Appears well, Alert In distress: None - HEENT Head: Normocephalic, Atraumatic Eyes: Normal Conjunctiva: Normal Nasal: Normal Mouth/Lips: Normal Mucous membranes: Normal Pharynx: Normal Neck: Normal, Supple. No: Lymphadenopathy - Respiratory Respiratory status: No respiratory distress Chest status: Nontender Breath sounds: Normal. No: Rales, Rhonchi, Stridor, Wheezing Chest palpation: Normal - Cardiovascular Rhythm: Regular Heart sounds: S1 appreciated, S2 appreciated Murmur: No - Abdominal Inspection: Obese Distension: No distension Bowel sounds: Normal Tenderness: Nontender Organomegaly: No organomegaly - Back Back: Normal, Nontender. 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 - Psychological Associated symptoms: Normal affect, Normal mood - Skin Skin Temperature: Warm Skin Moisture: Dry Skin Color: Normal <SYEDA SAM - Last Filed: 12/13/19 20:32> - Vital signs Vitals: Resp 15 12/12/19 10:00 Course - Laboratory Result Diagrams: 12/12/19 10:16 12/12/19 10:16 - Diagnostic Test Radiology reviewed: Image reviewed, Reports reviewed <RENÉ REYES - Last Filed: 12/12/19 22:00> - Laboratory Result Diagrams: 12/13/19 06:00 12/13/19 06:00 - EKG Interpretation by Me EKG shows normal: Sinus rhythm When compared to previous EKG there are: Changes noted <SYEDA SAM - Last Filed: 12/13/19 20:32> - Re-evaluation Re-evalutation: 12/12/19 20:13 She returned from MRI. 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 There is a bruise to the right toe we will x-ray the toe. coal gasification technician states she did walk from the chair but was losing her balance when she got to the bed and stubbed her toe. 12/12/19 21:38 I have completed a rectal exam [facility] She did have good rectal tone. I attempted to stand her and she stood for about 3 to 4 seconds and then stated that her legs were giving out on her and she did become weight and I lowered her to the ground. (RENÉ REYES) 12/12/19 15:55 Patient sitting in room. Patient presently denies any chest pain abdominal pain nausea or vomiting. Patient complains of generalized weakness and malaise. Patient states unable to put into words exactly how she is feeling at this time. 12/12/19 17:00 Attempted to ambulate patient at bedside, patient with ataxia. Patient with good strength when lying on the stretcher. Patient knows what month it is and where she is out although is unable to state who the current president is. 12/12/19 17:48 Spoke with patient's boyfriend Tae at her request. Tae states that yamil luna has something seriously wrong with her although he states that she has been here several times to the ER and they have not found any significant problem. He states that normally she can walk without difficulty and now she is having difficulty with ambulation. He states that something is wrong with her although he is uncertain what it may be. Consulted with Dr. Mijares, Dr. Mijares to bedside for examination. When patient initially questioned she denied any pain symptoms although when he specifically asked that she had back pain she did complain of lower back pain symptoms. No midline spinal tenderness, patient does have left SI tenderness. Dr. Green advises obtaining MRI of thoracic and lumbar spine with contrast. 12/12/19 20:12 Report and handoff given to Melanie Reyes SHIRRING TENDER (SYEDA SAM) - Vital Signs Vital signs: Temp Pulse Resp BP Pulse Ox 97.9 F 90 17 119/79 100 12/13/19 15:16 12/13/19 15:16 12/13/19 15:16 12/13/19 15:16 12/13/19 15:16 - Laboratory Laboratory results interpreted by me: 12/12/19 12/12/19 12/12/19 10:16 10:16 16:30 WBC 11.3 H MCV 100 H MCH 35.1 H RDW 14.6 H Absolute Neuts (auto) 8.3 H Potassium 3.1 L Chloride 93 L Creatinine 0.46 L Total Bilirubin 2.4 H Direct Bilirubin 1.2 H AST 77 H ALT 63 H Ammonia Creatine Kinase 26 L Urine Protein 100 H Urine Ketones 80 H Urine Blood LARGE H Urine Nitrite POSITIVE H Urine Bilirubin SMALL H Urine Urobilinogen 4.0 H Ur Leukocyte Esterase MODERATE H 12/12/19 21:46 WBC MCV MCH RDW Absolute Neuts (auto) Potassium Chloride Creatinine Total Bilirubin Direct Bilirubin AST ALT Ammonia < 8.7 L Creatine Kinase Urine Protein Urine Ketones Urine Blood Urine Nitrite Urine Bilirubin Urine Urobilinogen Ur Leukocyte Esterase - EKG Interpretation by Me Additional EKG results interpreted by me: 12/12/19 19:17 Patient with sinus rhythm rate of 96, QTC 491 with some borderline prolongation, patient does have T depression in lead V3 which is different as compared to previous EKG (SYEDA SAM) Discharge - Discharge Admitting Provider: Nikolas (Hospitalist) Unit Admitted: Medical Floor <RENÉ REYES - Last Filed: 12/12/19 22:00> <SYEDA SAM - Last Filed: 12/13/19 20:32> - Discharge Clinical Impression: Conversion reaction Disposition: ADMITTED INPATIENT
[2019-12-12 13:41] LABS: ALCOHOL < 10 mg/dL (NONE DETECTED)
[2019-12-12 16:57] LABS: APPEARANCE,URINE SLIGHTLY-CLOUDY; BILIRUBIN,URINE SMALL (NEGATIVE); COLOR,URINE AMBER; GLUCOSE, URINE NEGATIVE (NEGATIVE); KETONES,URINE 80 mg/dL (NEGATIVE); LEUKOCYTE ESTERASE,URINE MODERATE (NEGATIVE); NITRITE,URINE POSITIVE (NEGATIVE); PROTEIN,URINE 100 mg/dL (NEGATIVE)
[2019-12-12 17:14] LABS: URINE AMPHETAMINES SCREEN NEGATIVE; URINE BARBITURATES SCREEN NEGATIVE; URINE BENZODIAZEPINES SCREEN NEGATIVE; URINE COCAINE SCREEN NEGATIVE; URINE METHADONE SCREEN NEGATIVE; URINE PHENCYCLIDINE SCREEN NEGATIVE
[2019-12-12 17:15] LABS: URINE MARIJUANA (THC) SCREEN UNCONFIRMED POSITIVE
[2019-12-12] MEDS ORDERED: CEFTRIAXONE 1 GM/D5W RTU 1 GM/50 ML RTUPB IV ONE (17:20)
--- NOTE | 2019-12-12 17:41 | RADIOLOGY REPORT (SQ) ---
EXAM DESCRIPTION: CT HEAD WITHOUT IMAGES COMPLETED DATE/TIME: 12/12/2019 5:31 pm REASON FOR STUDY: weakness COMPARISON: None. TECHNIQUE: Axial images acquired through the brain without intravenous contrast. Images reviewed wi th bone, brain and subdural windows. Additional sagittal and coronal reconstructions were generated. Images stored on PACS. All CT scanners at this facility use dose modulation, iterative reconstruction, and/or weight based d osing when appropriate to reduce radiation dose to as low as reasonably achievable (ALARA). [facility]: Dose Right [facility]: CareDose [facility]: Dose Right [facility]: Teradose 4D [facility]: [employer] RADIATION DOSE: CT Rad equipment meets quality standard of care and radiation dose reduction techniq ues were employed. CTDIvol: 48.6 mGy. DLP: 855 mGy-cm. mGy. LIMITATIONS: None. FINDINGS: VENTRICLES: Normal size and contour. CEREBRUM: No masses. No hemorrhage. No midline shift. No evidence for acute infarction. Normal gra y/white matter differentiation. No areas of low density in the white matter. CEREBELLUM: No masses. No hemorrhage. No alteration of density. No evidence for acute infarction. EXTRAAXIAL SPACES: No fluid collections. No masses. ORBITS AND GLOBE: No intra- or extraconal masses. Normal contour of globe without masses. CALVARIUM: No fracture. PARANASAL SINUSES: No fluid or mucosal thickening. SOFT TISSUES: No mass or hematoma. OTHER: No other significant finding. IMPRESSION: NORMAL BRAIN CT WITHOUT CONTRAST. EVIDENCE OF ACUTE STROKE: NO. COMMENT: Quality ID # [id number]: Final reports with documentation of one or more dose reduction techniques (e.g., Automated exposure control, adjustment of the mA and/or kV according to patient size, use of iterative reconstruction technique) TECHNICAL DOCUMENTATION: JOB ID: [id number] 2010 [employer]- All Rights Reserved Reading location - IP/workstation name: [email or web address]
--- NOTE | 2019-12-12 17:54 | RADIOLOGY REPORT (SQ) ---
EXAM DESCRIPTION: U/S ABDOMEN LIMITED W/O DOP IMAGES COMPLETED DATE/TIME: 12/12/2019 5:44 pm REASON FOR STUDY: cp, elevated bilirubin COMPARISON: 10/15/2019 TECHNIQUE: Dynamic and static grayscale images acquired of the abdomen and recorded on PACS. Parisho rick selected color Doppler and spectral images recorded. LIMITATIONS: None. FINDINGS: PANCREAS: No masses. Visualized pancreatic duct normal caliber. LIVER: Increased echogenicity. No masses. LIVER VASCULATURE: Normal directional flow of the main portal vein and hepatic veins. GALLBLADDER: There is a small amount of sludge in the gallbladder. No gallstones are seen. No wall thickening or pericholecystic fluid. ULTRASOUND-DETECTED WESLEY'S SIGN: Negative. INTRAHEPATIC DUCTS AND COMMON DUCT: CBD and intrahepatic ducts normal caliber. No filling defects. AORTA: No aneurysm. RIGHT KIDNEY: Normal size, 9.9 cm. Normal echogenicity. No solid or suspicious masses. No hydronephr osis. No calcifications. PERITONEAL AND RIGHT PLEURAL SPACE: No ascites or effusions. OTHER: No other significant findings. IMPRESSION: Hepatic steatosis. There is a small amount of sludge in the gallbladder. No gallstones are seen. TECHNICAL DOCUMENTATION: JOB ID: [id number] 2010 [employer]- All Rights Reserved Reading location - IP/workstation name: [email or web address]
--- NOTE | 2019-12-12 20:45 | RADIOLOGY REPORT (SQ) ---
EXAM DESCRIPTION: MR LUMBAR SPINE WITHOUT THEN WITH IV CONTRAST COMPLETED DATE/TME: 12/12/2019 17:57 CLINICAL HISTORY: 39 years Female ataxia, back pain COMPARISON: None. TECHNIQUE: Multiplanar and multisequence imaging obtained through the lumbar spine with and without IV contrast. FINDINGS: Straightening of the normal lordosis. There is loss of height and signal in the L3-4 L4-5 and L5-S1 disc interspaces consistent with disc desiccation. Annular tear posteriorly at L4-5. Hemangioma at S1. No geographic marrow lesion or marrow edema. Conus ends at T12-L1 and appears unremarkable. The canal appears congenitally narrowed. Motion artifact on the axial images limits evaluation. L1-L2 level is unremarkable. Mild disc bulging and facet arthropathy at L2-3 without central canal or neural foraminal narrowing. L3-4: There is generalized bulging of the disc and facet arthropathy with moderate narrowing of the central canal and neural foramina left greater than right. L4-5: Generalized bulging of the disc with a broad-based central protrusion. Facet arthropathy results in mild bilateral neural foraminal stenosis. There is mild central canal narrowing. L5-S1: Generalized bulging of the disc and facet arthropathy with small central protrusion. There is moderate neural foraminal stenosis left greater than right. On the postcontrast imaging no significant abnormal enhancement is within the vertebral bodies or the canal. Small amount of enhancement is seen along facets which is likely related to degenerative and inflammatory change this is most notable about the left facet at L3-4, L1-2 and T12-L1 levels and on the right at L3-4. IMPRESSION: Mild degenerative disc disease as described, with moderate central canal and neural foraminal narrowing at L3-4 Small amount of inflammatory sinus facet disease at multiple levels Moderate neural foraminal stenosis at L5-S1
--- NOTE | 2019-12-12 20:46 | RADIOLOGY REPORT (SQ) ---
EXAM DESCRIPTION: XR TOES 2 OR MORE VIEWS COMPLETED DATE/TME: 12/12/2019 20:12 CLINICAL HISTORY: 39 years Female pain injury great toe COMPARISON: None. TECHNIQUE: Right toe, three views FINDINGS: No acute fractures or dislocations are identified. No osseous destructive lesions. No radiopaque foreign object noted. IMPRESSION: No acute fracture is identified.
--- NOTE | 2019-12-12 20:50 | RADIOLOGY REPORT (SQ) ---
PROCEDURE: CLINICAL HISTORY: 39 years Female ataxia, back pain COMPARISON: None. TECHNIQUE: Multiplanar and multisequence imaging obtained through the thoracic spine with and without IV contrast. FINDINGS: There is normal thoracic alignment and kyphosis. Signal in the thoracic cord appears unremarkable. No geographic marrow lesion or evidence of marrow edema. There is significant motion artifact on the axial images which compromises evaluation. No evidence to suggest central canal stenosis or HNP. No evidence of abnormal enhancement IMPRESSION: No acute abnormality in the thoracic spine
[2019-12-12] MEDS ORDERED: DEXAMETHASONE SOD PHOS INJ 10 MG/1 ML VIAL IV ONE (21:17)
[2019-12-12] MEDS ORDERED: KETOROLAC TROMETHAMINE INJ/PF 30 MG/1 ML SDV IV ONE (21:17)
[2019-12-12] MEDS ORDERED: FAMOTIDINE 20 MG TABLET PO SCH (23:45)
[2019-12-12] MEDS ORDERED: OLANZAPINE 5 MG TABLET PO SCH (23:45)
[2019-12-12] MEDS ORDERED: MAG HYDROX/AL HYDROX/SIMETH SUSP 30 ML UDCUP PO PRN (23:49)
[2019-12-12] MEDS ORDERED: MAGNESIUM HYDROXIDE SUSP 30 ML UDCUP PO PRN (23:49)
[2019-12-12] MEDS ORDERED: ONDANSETRON HCL INJ/PF 4 MG/2 ML SDV IV PRN (23:49)
[2019-12-12] MEDS ORDERED: HYDRALAZINE HCL INJ/PF 20 MG/1 ML SDV IV PRN (23:55)
[2019-12-12] MEDS ORDERED: ACETAMINOPHEN 325 MG TABLET PO PRN (23:55)
[2019-12-12] MEDS ORDERED: MELATONIN 5 MG TABLET PO PRN (23:55)
[2019-12-12] MEDS ORDERED: GUAIFENESIN SYRP 200 MG/10 ML UDC PO PRN (23:55)
[2019-12-13] MEDS ORDERED: OLANZAPINE 5 MG TABLET PO ONE (00:45)
[2019-12-13] MEDS ORDERED: FAMOTIDINE 20 MG TABLET PO ONE (00:45)
--- NOTE | 2019-12-13 03:49 | PDOC H&P ---
History of Present Illness Admission Date/PCP: 12/12/19 22:05 No local PCP Patient complains of: Weakness of legs History of Present Illness: NUVIA GALLAGHER is a 39 year old female who presented the emergency room via EMS with the acute inability to walk due to bilateral leg weakness. She admits that she was well yesterday and last night before going to bed but woke this morning unable to walk due to severe weakness in her bilateral lower extremities. Her lower extremity weakness was accompanied by a mild headache and numbness and tingling in her oral labia and lower extremities. Her lower extremity weakness was associated with malaise, weakness and mild nausea. She denies other associated or accompanying signs and symptoms. She admits a prior similar episode in which her symptoms lasted 3 days and then resolved spontaneously. She initially attributed her symptoms to consuming too much alcohol on the previous evening, but then later changed her mind to thinking that may be she "hurt something" while she was moving from one residence to another. She has not identified any additional aggravating or ameliorating factors for her lower extremity weakness. In the emergency room she was found to have a normal CT scan of the head and a contrast MRI of the thoracic and ladonna mbar spine revealed only chronic changes with no explanation for acute bilateral lower extremity dysfunction. Exam by the emergency room provider showed the patient to have sensation and seemingly normal strength and neurologic function of the bilateral lower extremities however when the patient was asked to stand with assistance she was able to stand only for a few seconds and she was unable to walk due to the weakness. Patient was subsequently admitted to hospital for further evaluation treatment. Past Medical History Cardiac Medical History: Reports: Hypertension Denies: Coronary Artery Disease, Myocardial Infarction Pulmonary Medical History: Denies: Asthma, Chronic Obstructive Pulmonary Disease (COPD) EENT Medical History: Denies: Cataracts, Ears - Hearing aids Neurological Medical History: Denies: Hemorrhagic CVA, Ischemic CVA, Seizures Endocrine Medical History: Reports: Obesity Denies: Diabetes Mellitus Type 1, Diabetes Mellitus Type 2, Hyperthyroidism, Hypothyroidism Renal/ Medical History: Denies: Chronic Kidney Disease, Nephrolithiasis Malignancy Medical History: Reports: None GI Medical History: Denies: Cirrhosis, Crohn's Disease, Hepatitis, Peptic Ulcer Disease, Ulcerative Colitis Musculoskeltal Medical History: Reports: Other - Degenerative disc disease of the spine with chronic back pain Denies: Fibromyalgia, Gout Skin Medical History: Denies: Eczema, Psoriasis Psychiatric Medical History: Denies: Alcohol Dependency, Substance Abuse, Tobacco Dependency Traumatic Medical History: Reports: None Hematology: Denies: Anemia, Bleeding Tendencies Infectious Medical History: Reports: None Past Surgical History Past Surgical History: Reports: Other - Myringotomy Social History Information Source: Patient Lives with: Family Smoking Status: Never Smoker Electronic Cigarette use?: No Frequency of Alcohol Use: Heavy Hx Recreational Drug Use: No Drugs: None Hx Prescription Drug Abuse: No - Advance Directive Resuscitation Status: Full Code Surrogate healthcare decision maker:: Edda Rowe Family History Family History: CAD, Hyperlipidemia, Hypertension, Malignancy Parental Family History Reviewed: Yes Children Family History Reviewed: No Sibling(s) Family History Reviewed.: Yes Medication/Allergy Home Medications: Hydrocodone Bit/Acetaminophen [Vicodin 5-500 mg Tablet] 1 tab PO ASDIR PRN #15 tablet 11/02/12 No Home Medications 1 11/02/12 Acyclovir 800 mg PO 5XD 7 Days tab 01/30/15 Acyclovir/Hydrocortisone [Xerese 5%-1% Cream] 1 applic TP 5XD #1 pkg 01/30/15 Hydrocodone/Acetaminophen [Pharr 5-325 mg Tablet] 1 tab PO Q6HP PRN #14 tablet 01/30/15 Cephalexin Monohydrate [Keflex 500 mg Capsule] 500 mg PO Q6H 10 Days capsule 03/26/19 Lorazepam [Ativan 1 mg Tablet] 1 mg PO Q6HP PRN #12 tablet 03/26/19 Metoclopramide HCl [Reglan 10 mg Tablet] 1 - 2 tab PO ASDIR PRN #25 tablet 02/04 Ondansetron [Zofran Odt 4 mg Tablet] 4 mg PO Q4HP PRN #30 tab.rapdis 03/26/19 Ondansetron [Ondansetron Odt] 8 mg PO Q8HP PRN #7 tab.rapdis 09/04/19 Cephalexin Monohydrate [Keflex 500 mg Capsule] 500 mg PO Q12H #20 capsule 10/15/19 Ondansetron [Zofran Odt 4 mg Tablet] 1 - 2 tab PO Q4H PRN #15 tab.rapdis 10/15/19 Magnesium Oxide 400 mg PO DAILY #7 tablet 11/03/19 Ondansetron [Zofran Odt 4 mg Tablet] 1 - 2 tab PO Q4H PRN #15 tab.rapdis 11/03/19 Potassium Chloride 20 meq PO BID 7 Days #14 tab.er.prt 11/03/19 Allergies/Adverse Reactions: No Known Allergies Allergy (Verified 03/26/19 12:43) Review of Systems Constitutional: PRESENT: as per HPI, weakness. ABSENT: chills, fever(s) Eyes: ABSENT: visual disturbances, other - Eye pain Ears: ABSENT: hearing changes, other - Ear pain Nose, Mouth, and Throat: PRESENT: as per HPI, headache(s). ABSENT: sore throat Cardiovascular: ABSENT: chest pain, palpitations Respiratory: ABSENT: cough, dyspnea Gastrointestinal: PRESENT: nausea. ABSENT: abdominal pain, constipation, diarrhea, vomiting Genitourinary: ABSENT: dysuria, hematuria Musculoskeletal: PRESENT: as per HPI, muscle weakness. ABSENT: back pain, joint swelling Integumentary: ABSENT: pruritus, rash Neurological: PRESENT: as per HPI, abnormal gait, numbness, tingling, weakness. ABSENT: confusion, convulsions, memory loss, syncope Psychiatric: ABSENT: anxiety, depression Endocrine: ABSENT: cold intolerance, heat intolerance Hematologic/Lymphatic: ABSENT: easy bleeding, easy bruising Allergic/Immunologic: ABSENT: seasonal rhinorrhea Physical Exam Vital Signs: Temp Pulse Resp BP Pulse Ox 98.4 F 11 L 128/87 H 100 12/12/19 10:21 12/12/19 22:01 12/12/19 22:01 12/12/19 22:01 Intake & Output 12/10/19 12/11/19 12/12/19 23:59 23:59 23:59 Intake Total 2049 Balance 2049 Weight 77.111 kg General appearance: PRESENT: no acute distress, cooperative, disheveled, obese, other - Inconsistent in her recitation events, also inconsistent in her history Head exam: PRESENT: atraumatic, normocephalic Eye exam: PRESENT: conjunctiva pink. ABSENT: conjunctival injection, scleral icterus Ear exam: PRESENT: normal external ear exam. ABSENT: bleeding, drainage Mouth exam: PRESENT: dry mucosa, neck supple Neck exam: ABSENT: thyromegaly, tracheal deviation Respiratory exam: PRESENT: clear to auscultation russel, symmetrical, unlabored Cardiovascular exam: PRESENT: RRR. ABSENT: clicks, gallop, rubs Pulses: PRESENT: normal radial pulses, normal dorsalis pedis pul Vascular exam: PRESENT: normal capillary refill. ABSENT: pallor GI/Abdominal exam: PRESENT: normal bowel sounds, soft Rectal exam: PRESENT: deferred Extremities exam: ABSENT: joint swelling, pedal edema Musculoskeletal exam: PRESENT: full ROM, normal inspection. ABSENT: deformity, dislocation Neurological exam: PRESENT: alert, reflexes normal, abnormal gait - Patient refuses due to weakness of her legs, CN II-XII grossly intact, other - Frequently confused and offers different answers to the same question when posed later.. ABSENT: motor sensory deficit Psychiatric exam: PRESENT: appropriate affect, normal mood, other - Tends to be vague and inconsistent when trying to relate events or describe her complaints, seems confused at times Skin exam: PRESENT: dry, intact, warm. ABSENT: jaundice, rash, urticaria Results Laboratory Results: 12/12/19 10:16 12/12/19 10:16 12/12/19 12/12/19 12/12/19 10:16 10:16 10:16 WBC 11.3 H RBC 3.99 Hgb 14.0 Hct 39.9 MCV 100 H MCH 35.1 H MCHC 35.1 RDW 14.6 H Plt Count 334 Seg Neutrophils % 73.3 Sodium 138.0 Potassium 3.1 L Chloride 93 L Carbon Dioxide 27 Anion Gap 18 BUN 14 Creatinine 0.46 L Est GFR ( Amer) > 60 Glucose 91 Calcium 9.6 Magnesium 1.7 Total Bilirubin 2.4 H AST 77 H Alkaline Phosphatase 75 Ammonia Total Protein 7.5 Albumin 4.1 Lipase 50.3 TSH Urine Color Urine Appearance Urine pH Ur Specific Massena Urine Protein Urine Glucose (UA) Urine Ketones Urine Blood Urine Nitrite Ur Leukocyte Esterase Urine WBC (Auto) Urine RBC (Auto) 12/12/19 12/12/19 12/12/19 10:16 16:30 21:46 WBC RBC Hgb Hct MCV MCH MCHC RDW Plt Count Seg Neutrophils % Sodium Potassium Chloride Carbon Dioxide Anion Gap BUN Creatinine Est GFR ( Amer) Glucose Calcium Magnesium Total Bilirubin AST Alkaline Phosphatase Ammonia < 8.7 L Total Protein Albumin Lipase TSH 2.73 Urine Color JOSE Urine Appearance SLIGHTLY-CLOUDY Urine pH 6.0 Ur Specific [place] 1.020 Urine Protein 100 H Urine Glucose (UA) NEGATIVE Urine Ketones 80 H Urine Blood LARGE H Urine Nitrite POSITIVE H Ur Leukocyte Esterase MODERATE H Urine WBC (Auto) 44 Urine RBC (Auto) 37 12/12/19 12/12/19 12/12/19 10:16 10:16 13:32 Creatine Kinase 26 L CK-MB (CK-2) 0.22 Troponin I < 0.012 < 0.012 Impressions: Chest X-Ray 12/12/19 10:29 IMPRESSION: NO ACUTE RADIOGRAPHIC FINDING IN THE CHEST. Abdomen Ultrasound 12/12/19 14:30 IMPRESSION: Hepatic steatosis. There is a small amount of sludge in the gallbladder. No gallstones are seen. Head CT 12/12/19 16:57 IMPRESSION: NORMAL BRAIN CT WITHOUT CONTRAST. EVIDENCE OF ACUTE STROKE: NO. Lumbar Spine MRI 12/12/19 17:57 IMPRESSION: Mild degenerative disc disease as described, with moderate central canal and neural foraminal narrowing at L3-4 Small amount of inflammatory sinus facet disease at multiple levels Moderate neural foraminal stenosis at L5-S1 Thoracic Spine MRI 12/12/19 17:57 IMPRESSION: No acute abnormality in the thoracic spine Toe X-Ray 12/12/19 20:12 IMPRESSION: No acute fracture is identified. 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, acute episode, without psychological stressor Is this a current diagnosis for this admission?: Yes (3) Urinary tract infection Qualifiers: Urinary tract infection type: site unspecified Hematuria presence: without hematuria Qualified Code(s): N39.0 - Urinary tract infection, site not specified Is this a current diagnosis for this admission?: Yes (4) Hypertension Qualifiers: Hypertension type: essential hypertension Qualified Code(s): I10 - Essential (primary) hypertension Is this a current diagnosis for this admission?: Yes (5) Obesity (BMI 30.0-34.9) Is this a current diagnosis for this admission?: Yes - Plan Summary Summary: Patient is admitted to the medical floor where she will receive routine supportive and symptomatic cares. A psychiatry consultation with Rahul Salgado will be obtained. Patient will be restarted on olanzapine 10 mg p.o. nightly. She will use Ativan 1 mg IV every 4 hours as needed for anxiety or agitation. She will be on a cardiac diet. CBCs, metabolic profiles and magnesium levels as well as other laboratory and/or radiographic evaluations will be obtained as needed. A physical therapy consultation will be obtained. Received a dose of Rocephin IV in the emergency room which will be continued empirically pending urine culture results. - Time Time Spent with patient: 15-24 minutes Medications reviewed and adjusted accordingly: Yes Anticipated discharge: Home - Inpatient Certification Based on my medical assessment, after consideration of the patient's comorbidities, presenting symptoms, or acuity I expect that the services needed warrant INPATIENT care.: Yes I certify that my determination is in accordance with my understanding of Medicare's requirements for reasonable and necessary INPATIENT services [42 CFR 412.3e].: Yes Medical Necessity: Need Close Monitoring Due to Risk of Patient Decompensation, Risk of Complication if Not Cared For in Hospital
[2019-12-13] MEDS: HEPARIN SOD (PORCINE) 5,000 UNIT/ML 1 ML VIAL SUBCUT SCH ×3 (05:57→21:49)
[2019-12-13 06:20] LABS: HEMATOCRIT 39.5 % (36.0-47.0); HEMOGLOBIN 13.7 g/dL (12.0-15.5); MEAN CORPUSCULAR HEMOGLOBIN 34.6 pg (27.0-33.4); MEAN CORPUSCULAR HGB CONC 34.6 g/dL (32.0-36.0); MEAN CORPUSCULAR VOLUME 100 fl (80-97); PLATELET COUNT 342 10^3/uL (150-450); RED BLOOD COUNT 3.95 10^6/uL (3.72-5.28); RED CELL DISTRIBUTION WIDTH 14.3 % (11.5-14.0); WHITE BLOOD COUNT 9.1 10^3/uL (4.0-10.5)
[2019-12-13 06:27] LABS: INTERNATIONAL RATION (INR) 1.05; PROTHROMBIN TIME 13.7 SEC (11.4-15.4)
[2019-12-13 06:28] LABS: PARTIAL THROMBOPLASTIN TIME 28.2 SEC (23.5-35.8)
[2019-12-13 06:48] LABS: ALBUMIN 3.9 g/dL (3.5-5.0); ALKALINE PHOSPHATASE 74 U/L (38-126); ANION GAP 16 (5-19); ASPARTATE AMINO TRANSFERASE 71 U/L (14-36); BILIRUBIN,DIRECT 1.1 mg/dL (0.0-0.4); BILIRUBIN,TOTAL 1.9 mg/dL (0.2-1.3); BLOOD UREA NITROGEN 9 mg/dL (7-20); CARBON DIOXIDE 24 mmol/L (22-30); CHLORIDE 99 mmol/L (98-107); GLUCOSE 128 mg/dL (75-110); PHOSPHORUS 3.5 mg/dL (2.5-4.5); TOTAL PROTEIN 7.5 g/dL (6.3-8.2)
[2019-12-13 06:49] LABS: POTASSIUM 4.1 mmol/L (3.6-5.0)
[2019-12-13 06:58] LABS: FREE T3 2.27 pg/mL (2.77-5.27)
[2019-12-13 07:12] LABS: THYROID STIMULATING HORMONE 0.61 uIU/mL (0.47-4.68)
[2019-12-13] MEDS: FAMOTIDINE 20 MG TABLET PO SCH ×2 (09:39→21:50)
[2019-12-13] MEDS: DOCUSATE SODIUM 100 MG CAPSULE PO SCH ×2 (09:39→18:31)
[2019-12-13] MEDS ORDERED: CEFTRIAXONE 1 GM/D5W RTU 1 GM/50 ML RTUPB IV SCH (18:00)
--- NOTE | 2019-12-13 18:01 | PDOC PROGRESS REPORT ---
Subjective Progress Note for:: 12/13/19 Subjective:: No adverse events overnight. No new complaints. She still cannot give me a really good history. She said "my legs and my back" about 15 times during our conversation. She still complains of tingling and paresthesias in her extremities and trouble with her memory. Apparently it all started about the time she started working at [employer] a couple of weeks ago. Reason For Visit: CONVERSION DISORDER WITH WEAKNESS Physical Exam Vital Signs: Temp Pulse Resp BP Pulse Ox 97.9 F 90 17 119/79 100 12/13/19 15:16 12/13/19 15:16 12/13/19 15:16 12/13/19 15:16 12/13/19 15:16 Intake & Output 12/12/19 12/13/19 12/14/19 06:59 06:59 06:59 Intake Total 2250 118 Output Total 550 Balance 1700 118 Weight 68.3 kg General appearance: PRESENT: no acute distress, cooperative, disheveled, obese Head exam: PRESENT: atraumatic, normocephalic Eye exam: PRESENT: EOMI, PERRLA. ABSENT: conjunctival injection, nystagmus, scleral icterus Respiratory exam: PRESENT: clear to auscultation russel, symmetrical, unlabored. ABSENT: accessory muscle use, chest wall tenderness, crackles, prolonged expiratory phas, rhonchi, tachypnea, wheezes Cardiovascular exam: PRESENT: RRR, +S1, +S2 Pulses: PRESENT: normal carotid pulses Vascular exam: PRESENT: normal capillary refill GI/Abdominal exam: PRESENT: normal bowel sounds, soft. ABSENT: distended, g uarding, rebound, tenderness Extremities exam: ABSENT: clubbing, pedal edema Musculoskeletal exam: PRESENT: normal inspection. ABSENT: deformity Neurological exam: PRESENT: awake, oriented to person, oriented to place, orien christian to situation, CN II-XII grossly intact Psychiatric exam: PRESENT: flat affect Skin exam: PRESENT: dry, warm Results Laboratory Results: 12/13/19 06:00 12/13/19 06:00 12/12/19 12/13/19 12/13/19 21:46 06:00 06:00 WBC 9.1 RBC 3.95 Hgb 13.7 Hct 39.5 MCV 100 H MCH 34.6 H MCHC 34.6 RDW 14.3 H Plt Count 342 Sodium 139.2 Potassium 4.1 D Chloride 99 Carbon Dioxide 24 Anion Gap 16 BUN 9 Creatinine 0.36 L Est GFR ( Amer) > 60 Glucose 128 H Calcium 9.0 Phosphorus 3.5 Magnesium 1.7 Total Bilirubin 1.9 H AST 71 H Alkaline Phosphatase 74 Ammonia < 8.7 L Total Protein 7.5 Albumin 3.9 TSH Free T3 pg/mL 12/13/19 06:00 WBC RBC Hgb Hct MCV MCH MCHC RDW Plt Count Sodium Potassium Chloride Carbon Dioxide Anion Gap BUN Creatinine Est GFR ( Amer) Glucose Calcium Phosphorus Magnesium Total Bilirubin AST Alkaline Phosphatase Ammonia Total Protein Albumin TSH 0.61 Free T3 pg/mL 2.27 L 12/12/19 12/12/19 12/12/19 10:16 10:16 13:32 Creatine Kinase 26 L CK-MB (CK-2) 0.22 Troponin I < 0.012 < 0.012 Impressions: Chest X-Ray 12/12/19 10:29 IMPRESSION: NO ACUTE RADIOGRAPHIC FINDING IN THE CHEST. Abdomen Ultrasound 12/12/19 14:30 IMPRESSION: Hepatic steatosis. There is a small amount of sludge in the gallbladder. No gallstones are seen. Head CT 12/12/19 16:57 IMPRESSION: NORMAL BRAIN CT WITHOUT CONTRAST. EVIDENCE OF ACUTE STROKE: NO. Lumbar Spine MRI 12/12/19 17:57 IMPRESSION: Mild degenerative disc disease as described, with moderate central canal and neural foraminal narrowing at L3-4 Small amount of inflammatory sinus facet disease at multiple levels Moderate neural foraminal stenosis at L5-S1 Thoracic Spine MRI 12/12/19 17:57 IMPRESSION: No acute abnormality in the thoracic spine Toe X-Ray 12/12/19 20:12 IMPRESSION: No acute fracture is identified. Assessment and Plan - Diagnosis (1) Conversion disorder with weakness or paralysis, acute episode, without psychological stressor Is this a current diagnosis for this admission?: Yes Plan: This all seemed to start about the time she started back to work at [employer]. She had not been working quite some time prior. Is been an extensive work-up thus far that has been unrevealing. We will get an MRI of the brain just to rule out something like MS. (2) Hypertension Qualifiers: Hypertension type: essential hypertension Qualified Code(s): I10 - Essential (primary) hypertension Is this a current diagnosis for this admission?: Yes Plan: Blood pressures have improved without intervention (3) Obesity (BMI 30.0-34.9) Is this a current diagnosis for this admission?: Yes Plan: Strongly encourage lifestyle modification (4) Urinary tract infection Qualifiers: Urinary tract infection type: site unspecified Hematuria presence: without hematuria Qualified Code(s): N39.0 - Urinary tract infection, site not specified Is this a current diagnosis for this admission?: Yes Plan: She is on Rocephin. A gram-negative kel is growing out of the urine. - Plan Summary Summary: Patient is admitted to the medical floor where she will receive routine baker pportive and symptomatic cares. A psychiatry consultation with Rahul Salgado will be obtained. Patient will be restarted on olanzapine 10 mg p.o. nightly. She will use Ativan 1 mg IV every 4 hours as needed for anxiety or agitation. She will be on a cardiac diet. CBCs, metabolic profiles and magnesium levels as well as other laboratory and/or radiographic evaluations will be obtained as needed. A physical therapy consultation will be obtained. Received a dose of Rocephin IV in the emergency room which will be continued empirically pending urine culture results. - Time Time Spent with patient: 25-34 minutes
[2019-12-13] MEDS ORDERED: NORMAL SALINE 1000 ML 1,000 ML IV ONE (18:15)
--- NOTE | 2019-12-13 19:35 | EKG REPORT ---
SEVERITY:- BORDERLINE ECG - SINUS RHYTHM BORDERLINE PROLONGED QT INTERVAL : Confirmed by: Ubaldo Maradiaga 13-Dec-2019 19:35:16
[2019-12-13] MEDS: OLANZAPINE 5 MG TABLET PO SCH (21:50)
--- NOTE | 2019-12-13 23:41 | RADIOLOGY REPORT (SQ) ---
CLINICAL HISTORY: Paresthesias, memory lapses COMPARISON: None. TECHNIQUE: MR BRAIN WITHOUT IV CONTRAST on 12/13/2019 12:00 AM CDT FINDINGS: There are no areas of restricted diffusion. Midline structures are unremarkable. There is no acute hemorrhage, mass effect or midline shift. Reese-white differentiation is preserved. There is no hydrocephalus. There is no significant volume loss for age. The calvarium is intact. Orbits and globes are unremarkable. The paranasal sinuses are clear. Mastoid air cells are clear. IMPRESSION: No acute intracranial findings.
[2019-12-14] MEDS: HEPARIN SOD (PORCINE) 5,000 UNIT/ML 1 ML VIAL SUBCUT SCH ×3 (06:24→21:46)
--- NOTE | 2019-12-14 10:28 | PSYCHOLOGICAL NOTE ---
Psych Note - Psych Note Date seen by psych provider: 12/13/19 Time seen by psych provider: 08:37 Psych Note: Reason for Consult: Possible Conversion Disorder Patient is unable to unwilling to engage in evaluation. Patient is unable to answer questions appropriately and fails to finish her thoughts. At this time, radiology is waiting for the patient to conduct her MRI. Patient will be seen again tomorrow.
[2019-12-14] MEDS: DOCUSATE SODIUM 100 MG CAPSULE PO SCH ×2 (10:34→17:43)
[2019-12-14] MEDS: FAMOTIDINE 20 MG TABLET PO SCH ×2 (10:34→21:47)
--- NOTE | 2019-12-14 15:38 | PDOC PROGRESS REPORT ---
Subjective Progress Note for:: 12/14/19 Subjective:: No adverse events overnight. Her MRI of her brain was normal. This morning she claims to be unable to remember most of the details of her hospitalization. Her sister spoke with her nurse and says that the patient drinks heavily. Patient would not engage with behavioral health yesterday. Reason For Visit: CONVERSION DISORDER WITH WEAKNESS Physical Exam Vital Signs: Temp Pulse Resp BP Pulse Ox 97.9 F 98 17 126/86 H 98 12/14/19 11:30 12/14/19 11:30 12/14/19 11:30 12/14/19 11:30 12/14/19 11:30 Intake & Output 12/13/19 12/14/19 12/15/19 06:59 06:59 06:59 Intake Total 2250 1288 120 Output Total 550 900 400 Balance 1700 388 -280 Weight 68.3 kg 68.3 kg General appearance: PRESENT: no acute distress, cooperative, disheveled, obese Head exam: PRESENT: atraumatic, normocephalic Eye exam: PRESENT: EOMI, PERRLA. ABSENT: conjunctival injection, nystagmus, scleral icterus Respiratory exam: PRESENT: clear to auscultation russel, symmetrical, unlabored. ABSENT: accessory muscle use, chest wall tenderness, crackles, prolonged expi ratory phas, rhonchi, tachypnea, wheezes Cardiovascular exam: PRESENT: RRR, +S1, +S2 Pulses: PRESENT: normal carotid pulses Vascular exam: PRESENT: normal capillary refill GI/Abdominal exam: PRESENT: normal bowel sounds, soft. ABSENT: distended, guarding, rebound, tenderness Extremities exam: ABSENT: clubbing, pedal edema Musculoskeletal exam: PRESENT: normal inspection. ABSENT: deformity Neurological exam: PRESENT: awake, oriented to person, oriented to place, oriented to situation, CN II-XII grossly intact Psychiatric exam: PRESENT: flat affect Skin exam: PRESENT: dry, warm Results Laboratory Results: 12/13/19 06:00 12/13/19 06:00 12/12/19 16:30 Catheterized Urine Urine Culture - Final Escherichia Coli 12/12/19 12/12/19 12/12/19 10:16 10:16 13:32 Creatine Kinase 26 L CK-MB (CK-2) 0.22 Troponin I < 0.012 < 0.012 Impressions: Chest X-Ray 12/12/19 10:29 IMPRESSION: NO ACUTE RADIOGRAPHIC FINDING IN THE CHEST. Abdomen Ultrasound 12/12/19 14:30 IMPRESSION: Hepatic steatosis. There is a small amount of sludge in the gallbladder. No gallstones are seen. Head CT 12/12/19 16:57 IMPRESSION: NORMAL BRAIN CT WITHOUT CONTRAST. EVIDENCE OF ACUTE STROKE: NO. Lumbar Spine MRI 12/12/19 17:57 IMPRESSION: Mild degenerative disc disease as described, with moderate central canal and neural foraminal narrowing at L3-4 Small amount of inflammatory sinus facet disease at multiple levels Moderate neural foraminal stenosis at L5-S1 Thoracic Spine MRI 12/12/19 17:57 IMPRESSION: No acute abnormality in the thoracic spine Toe X-Ray 12/12/19 20:12 IMPRESSION: No acute fracture is identified. Head MRI 12/13/19 00:00 IMPRESSION: No acute intracranial findings. Assessment and Plan - Diagnosis (1) Conversion disorder with weakness or paralysis, acute episode, without psychological stressor Is this a current diagnosis for this admission?: Yes Plan: This all seemed to start about the time she started back to work at [employer]. She had not been working quite some time prior. Is been an extensive work-up thus far that has been unrevealing. MRI of the brain was completely normal, so it is unlikely that she has something like MS. Her sister says that she drinks heavily, so we will make sure that she has vitamin supplementation ordered. Her memory of events was much better yesterday and today it mysteriously is worse. (2) Hypertension Qualifiers: Hypertension type: essential hypertension Qualified Code(s): I10 - Essential (primary) hypertension Is this a current diagnosis for this admission?: Yes Plan: Blood pressures have improved without intervention (3) Obesity (BMI 30.0-34.9) Is this a current diagnosis for this admission?: Yes Plan: Strongly encourage lifestyle modification (4) Urinary tract infection Qualifiers: Urinary tract infection type: site unspecified Hematuria presence: without hematuria Qualified Code(s): N39.0 - Urinary tract infection, site not specified Is this a current diagnosis for this admission?: Yes Plan: She is growing a pansensitive E. coli. We will switch to oral Keflex. - Plan Summary Summary: Patient is admitted to the medical floor where she will receive routine supportive and symptomatic cares. A psychiatry consultation with Rahul Salgado will be obtained. Patient will be restarted on olanzapine 10 mg p.o. nightly. She will use Ativan 1 mg IV every 4 hours as needed for anxiety or agitation. She will be on a cardiac diet. CBCs, metabolic profiles and magnesium levels as well as other laboratory and/or radiographic evaluations will be obtained as needed. A physical therapy consultation will be obtained. Received a dose of Rocephin IV in the emergency room which will be continued empirically pending urine culture results. - Time Time Spent with patient: 25-34 minutes
[2019-12-14] MEDS: NORMAL SALINE 1000 ML 1,000 ML with POTASSIUM CHLORIDE 20 MEQ, MAGNESIUM SULFATE 8 MEQ,... IV SCH ×5 (17:42)
[2019-12-14] MEDS: CEPHALEXIN 500 MG CAPSULE PO SCH (21:47)
[2019-12-14] MEDS: OLANZAPINE 5 MG TABLET PO SCH (21:47)
[2019-12-15] MEDS: CEPHALEXIN 500 MG CAPSULE PO SCH ×3 (05:55→21:43)
[2019-12-15] MEDS: HEPARIN SOD (PORCINE) 5,000 UNIT/ML 1 ML VIAL SUBCUT SCH ×3 (05:55→21:44)
[2019-12-15] MEDS: FAMOTIDINE 20 MG TABLET PO SCH ×2 (09:21→21:43)
[2019-12-15] MEDS: DOCUSATE SODIUM 100 MG CAPSULE PO SCH ×2 (09:22→17:17)
[2019-12-15] MEDS: NORMAL SALINE 1000 ML 1,000 ML with POTASSIUM CHLORIDE 20 MEQ, MAGNESIUM SULFATE 8 MEQ,... IV SCH ×5 (17:18)
--- NOTE | 2019-12-15 17:46 | PDOC PROGRESS REPORT ---
Subjective Progress Note for:: 12/15/19 Subjective:: No adverse events overnight. I do not think she tried to get out of bed yesterday. When I went in the room to see her she would not get off the phone and talk to me. Reason For Visit: CONVERSION DISORDER WITH WEAKNESS Physical Exam Vital Signs: Temp Pulse Resp BP Pulse Ox 97.3 F 87 16 102/73 100 12/15/19 16:00 12/15/19 16:00 12/15/19 16:00 12/15/19 16:00 12/15/19 16:00 Intake & Output 12/14/19 12/15/19 12/16/19 06:59 06:59 06:59 Intake Total 1288 1143 320 Output Total 900 700 Balance 388 443 320 Weight 68.3 kg 68.3 kg General appearance: PRESENT: no acute distress, disheveled, obese, other - Re fused to get off the phone and talk to me and to let me examine her. ABSENT: cooperative Results Laboratory Results: 12/13/19 06:00 12/13/19 06:00 12/12/19 12/12/19 12/12/19 10:16 10:16 13:32 Creatine Kinase 26 L CK-MB (CK-2) 0.22 Troponin I < 0.012 < 0.012 Impressions: Chest X-Ray 12/12/19 10:29 IMPRESSION: NO ACUTE RADIOGRAPHIC FINDING IN THE CHEST. Abdomen Ultrasound 12/12/19 14:30 IMPRESSION: Hepatic steatosis. There is a small amount of sludge in the gallbladder. No gallstones are seen. Head CT 12/12/19 16:57 IMPRESSION: NORMAL BRAIN CT WITHOUT CONTRAST. EVIDENCE OF ACUTE STROKE: NO. Lumbar Spine MRI 12/12/19 17:57 IMPRESSION: Mild degenerative disc disease as described, with moderate central canal and neural foraminal narrowing at L3-4 Small amount of inflammatory sinus facet disease at multiple levels Moderate neural foraminal stenosis at L5-S1 Thoracic Spine MRI 12/12/19 17:57 IMPRESSION: No acute abnormality in the thoracic spine Toe X-Ray 12/12/19 20:12 IMPRESSION: No acute fracture is identified. Head MRI 12/13/19 00:00 IMPRESSION: No acute intracranial findings. Assessment and Plan - Diagnosis (1) Conversion disorder with weakness or paralysis, acute episode, without psychological stressor Is this a current diagnosis for this admission?: Yes Plan: This all seemed to start about the time she started back to work at [employer]. She had not been working quite some time prior. Is been an extensive work-up thus far that has been unrevealing. MRI of the brain was completely normal, so it is unlikely that she has something like MS. Her sister says that she drinks heavily, so we will make so she has vitamin supplementation ordered. She refused to get off the phone and talk to me today, and seeing is all of her tests are negative and she is doing well enough to talk on the phone and have conversations I will probably discharge her home tomorrow. (2) Hypertension Qualifiers: Hypertension type: essential hypertension Qualified Code(s): I10 - Essential (primary) hypertension Is this a current diagnosis for this admission?: Yes Plan: Blood pressures have improved without intervention (3) Obesity (BMI 30.0-34.9) Is this a current diagnosis for this admission?: Yes Plan: Strongly encourage lifestyle modification (4) Urinary tract infection Qualifiers: Urinary tract infection type: site unspecified Hematuria presence: without hematuria Qualified Code(s): N39.0 - Urinary tract infection, site not specified Is this a current diagnosis for this admission?: Yes Plan: She is growing a pansensitive E. coli. We switched to oral Keflex. - Plan Summary Summary: Patient is admitted to the medical floor where she will receive routine supportive and symptomatic cares. A psychiatry consultation with Rahul Salgado will be obtained. Patient will be restarted on olanzapine 10 mg p.o. nightly. She will use Ativan 1 mg IV every 4 hours as needed for anxiety or agitation. She will be on a cardiac diet. CBCs, metabolic profiles and magnesium levels as well as other laboratory and/or radiographic evaluations will be obtained as needed. A physical therapy consultation will be obtained. Received a dose of Rocephin IV in the emergency room which will be continued empirically pending urine culture results. - Time Time Spent with patient: Less than 15 minutes
[2019-12-15] MEDS: OLANZAPINE 5 MG TABLET PO SCH (21:43)
[2019-12-16] MEDS: HEPARIN SOD (PORCINE) 5,000 UNIT/ML 1 ML VIAL SUBCUT SCH ×3 (05:35→21:20)
[2019-12-16] MEDS: CEPHALEXIN 500 MG CAPSULE PO SCH ×3 (05:35→21:21)
[2019-12-16] MEDS: DOCUSATE SODIUM 100 MG CAPSULE PO SCH ×2 (10:14→18:40)
[2019-12-16] MEDS: FAMOTIDINE 20 MG TABLET PO SCH ×2 (10:14→21:21)
[2019-12-16] MEDS: NORMAL SALINE 1000 ML 1,000 ML with POTASSIUM CHLORIDE 20 MEQ, MAGNESIUM SULFATE 8 MEQ,... IV SCH ×5 (18:40)
--- NOTE | 2019-12-16 18:40 | PDOC PROGRESS REPORT ---
Subjective Progress Note for:: 12/16/19 Subjective:: No adverse events overnight. No new complaints. Patient had demonstrated the ability to be able to stand earlier but when it came time to discharge her she would not demonstrate this ability. There was some concern over the level of effort she was giving. I had a long conversation on the phone with her sister and her sister was a little suspicious of the patient's symptoms. Discharge was held until she can have reevaluation by behavioral health. Reason For Visit: CONVERSION DISORDER WITH WEAKNESS Physical Exam Vital Signs: Temp Pulse Resp BP Pulse Ox 97.5 F 97 16 114/83 99 12/16/19 16:16 12/16/19 16:16 12/16/19 16:16 12/16/19 16:16 12/16/19 16:16 Intake & Output 12/15/19 12/16/19 12/17/19 06:59 06:59 06:59 Intake Total 1143 1463 480 Output Total 700 300 200 Balance 443 1163 280 Weight 68.3 kg 68.3 kg General appearance: PRESENT: no acute distress, cooperative, disheveled, obese Head exam: PRESENT: atraumatic, normocephalic Eye exam: PRESENT: EOMI, PERRLA. ABSENT: conjunctival injection, nystagmus, scleral icterus Respiratory exam: PRESENT: clear to auscultation russel, symmetrical, unlabored. ABSENT: accessory muscle use, chest wall tenderness, crackles, prolonged expiratory phas, rhonchi, tachypnea, wheezes Cardiovascular exam: PRESENT: RRR, +S1, +S2 Pulses: PRESENT: normal carotid pulses Vascular exam: PRESENT: normal capillary refill GI/Abdominal exam: PRESENT: normal bowel sounds, soft. ABSENT: distended, guarding, rebound, tenderness Extremities exam: ABSENT: clubbing, pedal edema Musculoskeletal exam: PRESENT: normal inspection. ABSENT: deformity Neurological exam: PRESENT: awake, oriented to person, oriented to place, oriented to situation Psychiatric exam: PRESENT: flat affect Skin exam: PRESENT: dry, warm Results Laboratory Results: 12/13/19 06:00 12/13/19 06:00 12/12/19 12/12/19 12/12/19 10:16 10:16 13:32 Creatine Kinase 26 L CK-MB (CK-2) 0.22 Troponin I < 0.012 < 0.012 Impressions: Chest X-Ray 12/12/19 10:29 IMPRESSION: NO ACUTE RADIOGRAPHIC FINDING IN THE CHEST. Abdomen Ultrasound 12/12/19 14:30 IMPRESSION: Hepatic steatosis. There is a small amount of sludge in the gallbladder. No gallstones are seen. Head CT 12/12/19 16:57 IMPRESSION: NORMAL BRAIN CT WITHOUT CONTRAST. EVIDENCE OF ACUTE STROKE: NO. Lumbar Spine MRI 12/12/19 17:57 IMPRESSION: Mild degenerative disc disease as described, with moderate central canal and neural foraminal narrowing at L3-4 Small amount of inflammatory sinus facet disease at multiple levels Moderate neural foraminal stenosis at L5-S1 Thoracic Spine MRI 12/12/19 17:57 IMPRESSION: No acute abnormality in the thoracic spine Toe X-Ray 12/12/19 20:12 IMPRESSION: No acute fracture is identified. Head MRI 12/13/19 00:00 IMPRESSION: No acute intracranial findings. Assessment and Plan - Diagnosis (1) Conversion disorder with weakness or paralysis, acute episode, without psychological stressor Is this a current diagnosis for this admission?: Yes Plan: This all seemed to start about the time she started back to work at [employer]. She had not been working quite some time prior. Is been an extensive work-up thus far that has been unrevealing. MRI of the brain was completely normal, so it is unlikely that she has something like MS. Her sister says that she drinks heavily, so we will make so she has vitamin supplementation ordered. She had previously demonstrated the ability to stand but when it came time to discharge her home she said she was unable to do so. Discharge is been held until she can be reevaluated by psychiatry. We have thus far been unable to determine any sort of somatic ailment that could account for her symptoms. We do have a follow-up visit with neurology arranged for her. (2) Hypertension Qualifiers: Hypertension type: essential hypertension Qualified Code(s): I10 - Essential (primary) hypertension Is this a current diagnosis for this admission?: Yes Plan: Blood pressures have improved without intervention (3) Obesity (BMI 30.0-34.9) Is this a current diagnosis for this admission?: Yes Plan: Strongly encourage lifestyle modification (4) Urinary tract infection Qualifiers: Urinary tract infection type: site unspecified Hematuria presence: without hematuria Qualified Code(s): N39.0 - Urinary tract infection, site not specified Is this a current diagnosis for this admission?: Yes Plan: She is growing a pansensitive E. coli. We switched to oral Keflex. - Plan Summary Summary: Patient is admitted to the medical floor where she will receive routine supportive and symptomatic cares. A psychiatry consultation with Rahul Salgado will be obtained. Patient will be restarted on olanzapine 10 mg p.o. nightly. She will use Ativan 1 mg IV every 4 hours as needed for anxiety or agitation. She will be on a cardiac diet. CBCs, metabolic profiles and magnesium levels as well as other laboratory and/or radiographic evaluations will be obtained as needed. A physical therapy consultation will be obtained. Received a dose of Rocephin IV in the emergency room which will be continued empirically pending urine culture results. - Time Time Spent with patient: 15-24 minutes
[2019-12-16] MEDS: OLANZAPINE 5 MG TABLET PO SCH (21:58)
[2019-12-17] MEDS: LORAZEPAM INJ 2 MG/1 ML VIAL IV PRN ×2 (02:52→14:20)
[2019-12-17] MEDS: HEPARIN SOD (PORCINE) 5,000 UNIT/ML 1 ML VIAL SUBCUT SCH ×2 (05:37→14:24)
[2019-12-17] MEDS: CEPHALEXIN 500 MG CAPSULE PO SCH ×3 (05:38→21:03)
[2019-12-17] MEDS: DOCUSATE SODIUM 100 MG CAPSULE PO SCH ×2 (10:05→19:12)
[2019-12-17] MEDS: FAMOTIDINE 20 MG TABLET PO SCH (10:05)
[2019-12-17 13:24] VITALS: BP 123/77
--- NOTE | 2019-12-17 16:17 | PDOC PROGRESS REPORT ---
Subjective Progress Note for:: 12/17/19 Subjective:: No adverse events overnight. Awaiting psychiatric follow-up because the patient would not talk to them the last time they came by. Reason For Visit: CONVERSION DISORDER WITH WEAKNESS Physical Exam Vital Signs: Temp Pulse Resp BP Pulse Ox 97.8 F 114 H 16 123/77 98 12/17/19 12:00 12/17/19 12:00 12/17/19 12:00 12/17/19 12:00 12/17/19 12:00 Intake & Output 12/16/19 12/17/19 12/18/19 06:59 06:59 06:59 Intake Total 2737 213 1408 Output Total 300 200 Balance 5041 498 1613 Weight 68.3 kg 67.4 kg General appearance: PRESENT: no acute distress, disheveled Results Laboratory Results: 12/13/19 06:00 12/13/19 06:00 12/12/19 12/12/19 12/12/19 10:16 10:16 13:32 Creatine Kinase 26 L CK-MB (CK-2) 0.22 Troponin I < 0.012 < 0.012 Impressions: Chest X-Ray 12/12/19 10:29 IMPRESSION: NO ACUTE RADIOGRAPHIC FINDING IN THE CHEST. Abdomen Ultrasound 12/12/19 14:30 IMPRESSION: Hepatic steatosis. There is a small amount of sludge in the gallbladder. No gallstones are seen. Head CT 12/12/19 16:57 IMPRESSION: NORMAL BRAIN CT WITHOUT CONTRAST. EVIDENCE OF ACUTE STROKE: NO. Lumbar Spine MRI 12/12/19 17:57 IMPRESSION: Mild degenerative disc disease as described, with moderate central canal and neural foraminal narrowing at L3-4 Small amount of inflammatory sinus facet disease at multiple levels Moderate neural foraminal stenosis at L5-S1 Thoracic Spine MRI 12/12/19 17:57 IMPRESSION: No acute abnormality in the thoracic spine Toe X-Ray 12/12/19 20:12 IMPRESSION: No acute fracture is identified. Head MRI 12/13/19 00:00 IMPRESSION: No acute intracranial findings. Assessment and Plan - Diagnosis (1) Conversion disorder with weakness or paralysis, acute episode, without psychological stressor Is this a current diagnosis for this admission?: Yes Plan: This all seemed to start about the time she started back to work at [employer]. She had not been working quite some time prior. Is been an extensive work-up thus far that has been unrevealing. MRI of the brain was completely normal, so it is unlikely that she has something like MS. Her sister says that she drinks heavily, so she has vitamin supplementation ordered. She had previously demonstrated the ability to stand but when it came time to discharge her home she said she was unable to do so. Discharge is been held until she can be reevaluated by psychiatry. She would not interact with psychiatry the last time they came by to see her. We have thus far been unable to determine any sort of somatic ailment that could account for her symptoms. We do have a follow-up visit with neurology arranged for her. (2) Hypertension Qualifiers: Hypertension type: essential hypertension Qualified Code(s): I10 - Essential (primary) hypertension Is this a current diagnosis for this admission?: Yes Plan: Blood pressures have improved without intervention (3) Obesity (BMI 30.0-34.9) Is this a current diagnosis for this admission?: Yes Plan: Strongly encourage lifestyle modification (4) Urinary tract infection Qualifiers: Urinary tract infection type: site unspecified Hematuria presence: without hematuria Qualified Code(s): N39.0 - Urinary tract infection, site not specified Is this a current diagnosis for this admission?: Yes Plan: She is growing a pansensitive E. coli. We switched to oral Keflex. - Plan Summary Summary: Patient is admitted to the medical floor where she will receive routine supportive and symptomatic cares. A psychiatry consultation with Rahul Salgado will be obtained. Patient will be restarted on olanzapine 10 mg p.o. nightly. She will use Ativan 1 mg IV every 4 hours as needed for anxiety or agitation. She will be on a cardiac diet. CBCs, metabolic profiles and magnesium levels as well as other laboratory and/or radiographic evaluations will be obtained as needed. A physical therapy consultation will be obtained. Received a dose of Rocephin IV in the emergency room which will be continued empirically pending urine culture results. - Time Time Spent with patient: Less than 15 minutes
--- NOTE | 2019-12-17 18:30 | PDOC DISCHARGE SUMMARY ---
Impression - Admit/DC Date/PCP Admission Date/Primary Care Provider: 12/12/19 22:05 Discharge Date: 12/17/19 - Discharge Diagnosis (1) Conversion disorder with weakness or paralysis, acute episode, without psychological stressor Is this a current diagnosis for this admission?: Yes (2) Hypertension Is this a current diagnosis for this admission?: Yes (3) Obesity (BMI 30.0-34.9) Is this a current diagnosis for this admission?: Yes (4) Urinary tract infection Is this a current diagnosis for this admission?: Yes - Assessment Summary: Patient is admitted to the medical floor where she will receive routine supportive and symptomatic cares. A psychiatry consultation with Rahul Salgado will be obtained. Patient will be restarted on olanzapine 10 mg p.o. nightly. She will use Ativan 1 mg IV every 4 hours as needed for anxiety or agitation. She will be on a cardiac diet. CBCs, metabolic profiles and magnesium levels as well as other laboratory and/or radiographic evaluations will be obtained as needed. A physical therapy consultation will be obtained. Received a dose of Rocephin IV in the emergency room which will be continued empirically pending urine culture results. - Additional Information Resuscitation Status: Full Code Discharge Diet: Regular Discharge Activity: Activity As Tolerated, Slowly Increase Activity Referrals: RAKESH CROFT MD [NO LOCAL MD] - (2 weeks for follow-up on movement disorder 12/15 @ 1117 A MESSAGE WAS LEFT FOR OFFICE TO CALL PATIENT WITH A CONSULTATION APPT.) Prescriptions: Cephalexin Monohydrate [Keflex 500 mg Capsule] 500 mg PO Q8 #9 capsule Home Medications: Cephalexin Monohydrate [Keflex 500 mg Capsule] 500 mg PO Q8 #9 capsule 12/16/19 History of Present Illiness History of Present Illness: NUVIA GALLAGHER is a 39 year old female who presented the emergency room via EMS with the acute inability to walk due to bilateral leg weakness. She admits that she was well yesterday and last night before going to bed but woke this morning unable to walk due to severe weakness in her bilateral lower extremities. Her lower extremity weakness was accompanied by a mild headache and numbness and tingling in her oral labia and lower extremities. Her lower extremity weakness was associated with malaise, weakness and mild nausea. She denies other associated or accompanying signs and symptoms. She admits a prior similar episode in which her symptoms lasted 3 days and then resolved spontaneously. She initially attributed her symptoms to consuming too much alcohol on the previous evening, but then later changed her mind to thinking that may be she "hurt something" while she was moving from one residence to another. She has not identified any additional aggravating or ameliorating factors for her lower extremity weakness. In the emergency room she was found to have a normal CT scan of the head and a contrast MRI of the thoracic and lumbar spine revealed only chronic changes with no explanation for acute bilateral lower extremity dysfunction. Exam by the emergency room provider showed the patient to have sensation and seemingly normal strength and neurologic function of the bilateral lower extremities however when the patient was asked to stand with assistance she was able to stand only for a few seconds and she was unable to walk due to the weakness. Patient was subsequently admitted to hospital for further evaluation treatment. Hospital Course Hospital Course: This patient had an extensive work-up that revealed no somatic explanation for this patient's symptoms. She did have urinary tract infection will be treated with Keflex at home. She was seen in consultation by psychiatry who felt that the patient was safe for discharge home that no further inpatient work-up was required. In the interest of being thorough, we have set her up for an outpatient neurology consultation, but the patient has good muscle strength and tone and has demonstrated the ability to stand and move herself around in the bed independently. At one point today she was trying to fall out of the bed and the nurse was blocking her and the patient actually pushed her way past the nurse to get out of the bed onto the floor. She claims to have fallen a couple of times but this was never witnessed. She lives with family and will be discharged home to them. Physical Exam Vital Signs: Temp Pulse Resp BP Pulse Ox 97.8 F 114 H 16 123/77 98 12/17/19 12:00 12/17/19 12:00 12/17/19 12:00 12/17/19 12:12/17/19 12:00 Intake & Output 12/16/19 12/17/19 12/18/19 06:59 06:59 06:59 Intake Total 9433 724 9594 Output Total 300 200 Balance 5033 035 1723 Weight 68.3 kg 67.4 kg General appearance: PRESENT: no acute distress, cooperative, disheveled, obese Head exam: PRESENT: atraumatic, normocephalic Eye exam: PRESENT: EOMI, PERRLA. ABSENT: conjunctival injection, nystagmus, scleral icterus Respiratory exam: PRESENT: clear to auscultation russel, symmetrical, unlabored. ABSENT: accessory muscle use, chest wall tenderness, crackles, prolonged expiratory phas, rhonchi, tachypnea, wheezes Cardiovascular exam: PRESENT: RRR, +S1, +S2 Pulses: PRESENT: normal carotid pulses Vascular exam: PRESENT: normal capillary refill GI/Abdominal exam: PRESENT: normal bowel sounds, soft. ABSENT: distended, guarding, rebound, tenderness Extremities exam: ABSENT: clubbing, pedal edema Musculoskeletal exam: PRESENT: normal inspection. ABSENT: deformity Neurological exam: PRESENT: awake, oriented to person, oriented to place, oriented to situation Psychiatric exam: PRESENT: flat affect Skin exam: PRESENT: dry, warm Results Laboratory Results: WBC 9.1 10^3/uL (4.0-10.5) 12/13/19 06:00 RBC 3.95 10^6/uL (3.72-5.28) 12/13/19 06:00 Hgb 13.7 g/dL (12.0-15.5) 12/13/19 06:00 Hct 39.5 % (36.0-47.0) 12/13/19 06:00 MCV 100 fl (80-97) H 12/13/19 06:00 MCH 34.6 pg (27.0-33.4) H 12/13/19 06:00 MCHC 34.6 g/dL (32.0-36.0) 12/13/19 06:00 RDW 14.3 % (11.5-14.0) H 12/13/19 06:00 Plt Count 342 10^3/uL (150-450) 12/13/19 06:00 Lymph % (Auto) 18.6 % (13-45) 12/12/19 10:16 [place] % (Auto) 6.7 % (3-13) 12/12/19 10:16 Eos % (Auto) 0.8 % (0-6) 12/12/19 10:16 Baso % (Auto) 0.6 % (0-2) 12/12/19 10:16 Absolute Neuts (auto) 8.3 10^3/uL (1.7-8.2) H 12/12/19 10:16 Absolute Lymphs (auto) 2.1 10^3/uL (0.5-4.7) 12/12/19 10:16 Absolute Monos (auto) 0.8 10^3/uL (0.1-1.4) 12/12/19 10:16 Absolute Eos (auto) 0.1 10^3/uL (0.0-0.6) 12/12/19 10:16 Absolute Basos (auto) 0.1 10^3/uL (0.0-0.2) 12/12/19 10:16 Seg Neutrophils % 73.3 % (42-78) 12/12/19 10:16 PT 13.7 SEC (11.4-15.4) 12/13/19 06:00 INR 1.05 12/13/19 06:00 APTT 28.2 SEC (23.5-35.8) 12/13/19 06:00 Sodium 139.2 mmol/L (137-145) 12/13/19 06:00 Potassium 4.1 mmol/L (3.6-5.0) D 12/13/19 06:00 Chloride 99 mmol/L (98-107) 12/13/19 06:00 Carbon Dioxide 24 mmol/L (22-30) 12/13/19 06:00 Anion Gap 16 (5-19) 12/13/19 06:00 BUN 9 mg/dL (7-20) 12/13/19 06:00 Creatinine 0.36 mg/dL (0.52-1.25) L 12/13/19 06:00 Est GFR ( Amer) > 60 (>60) 12/13/19 06:00 Est GFR (MDRD) Non-Af > 60 (>60) 12/13/19 06:00 Glucose 128 mg/dL (75-110) H 12/13/19 06:00 Calcium 9.0 mg/dL (8.4-10.2) 12/13/19 06:00 Phosphorus 3.5 mg/dL (2.5-4.5) 12/13/19 06:00 Magnesium 1.7 mg/dL (1.6-2.3) 12/13/19 06:00 Total Bilirubin 1.9 mg/dL (0.2-1.3) H 12/13/19 06:00 Direct Bilirubin 1.1 mg/dL (0.0-0.4) H 12/13/19 06:00 Neonat Total Bilirubin Not Reportable 12/13/19 06:00 Neonat Direct Bilirubin Not Reportable 12/13/19 06:00 Neonat Indirect Bili Not Reportable 12/13/19 06:00 AST 71 U/L (14-36) H 12/13/19 06:00 ALT 59 U/L (<35) H 12/13/19 06:00 Alkaline Phosphatase 74 U/L (38-126) 12/13/19 06:00 Ammonia < 8.7 umol/L (9-33) L 12/12/19 21:46 Creatine Kinase 26 U/L (30-135) L 12/12/19 10:16 CK-MB (CK-2) 0.22 ng/mL (<4.55) 12/12/19 10:16 Troponin I < 0.012 ng/mL 12/12/19 13:32 Total Protein 7.5 g/dL (6.3-8.2) 12/13/19 06:00 Albumin 3.9 g/dL (3.5-5.0) 12/13/19 06:00 Lipase 50.3 U/L (23-300) 12/12/19 10:16 TSH 0.61 uIU/mL (0.47-4.68) 12/13/19 06:00 Free T3 pg/mL 2.27 pg/mL (2.77-5.27) L 12/13/19 06:00 Urine Color JOSE 12/12/19 16:30 Urine Appearance SLIGHTLY-CLOUDY 12/12/19 16:30 Urine pH 6.0 (5.0-9.0) 12/12/19 16:30 Ur Specific [place] 1.020 12/12/19 16:30 Urine Protein 100 mg/dL (NEGATIVE) H 12/12/19 16:30 Urine Glucose (UA) NEGATIVE mg/dL (NEGATIVE) 12/12/19 16:30 Urine Ketones 80 mg/dL (NEGATIVE) H 12/12/19 16:30 Urine Blood LARGE (NEGATIVE) H 12/12/19 16:30 Urine Nitrite POSITIVE (NEGATIVE) H 12/12/19 16:30 Urine Bilirubin SMALL (NEGATIVE) H 12/12/19 16:30 Urine Urobilinogen 4.0 mg/dL (<2.0) H 12/12/19 16:30 Ur Leukocyte Esterase MODERATE (NEGATIVE) H 12/12/19 16:30 Urine WBC (Auto) 44 /HPF 12/12/19 16:30 Urine RBC (Auto) 37 /HPF 12/12/19 16:30 Urine Bacteria (Auto) 1+ /HPF 12/12/19 16:30 Squamous Epi Cells Auto 4 /HPF 12/12/19 16:30 Urine Mucus (Auto) OCC /LPF 12/12/19 16:30 Urine Ascorbic Acid NEGATIVE (NEGATIVE) 12/12/19 16:30 Urine Opiates Screen NEGATIVE 12/12/19 16:30 Urine Methadone Screen NEGATIVE 12/12/19 16:30 Ur Barbiturates Screen NEGATIVE 12/12/19 16:30 Ur Phencyclidine Scrn NEGATIVE 12/12/19 16:30 Ur Amphetamines Screen NEGATIVE 12/12/19 16:30 U Benzodiazepines Scrn NEGATIVE 12/12/19 16:30 Urine Cocaine Screen NEGATIVE 12/12/19 16:30 U Marijuana (THC) Screen UNCONFIRMED POSITIVE 12/12/19 16:30 Serum Alcohol < 10 mg/dL (NONE DETECTED) 12/12/19 22:48 SARS-CoV-2 (PCR) NEGATIVE (NEGATIVE) 12/17/19 15:00 12/12/19 12/12/19 10:16 13:32 CK-MB (CK-2) 0.22 Troponin I < 0.012 < 0.012 Impressions: Chest X-Ray 12/12/19 10:29 IMPRESSION: NO ACUTE RADIOGRAPHIC FINDING IN THE CHEST. Abdomen Ultrasound 12/12/19 14:30 IMPRESSION: Hepatic steatosis. There is a small amount of sludge in the gallbladder. No gallstones are seen. Head CT 12/12/19 16:57 IMPRESSION: NORMAL BRAIN CT WITHOUT CONTRAST. EVIDENCE OF ACUTE STROKE: NO. Lumbar Spine MRI 12/12/19 17:57 IMPRESSION: Mild degenerative disc disease as described, with moderate central canal and neural foraminal narrowing at L3-4 Small amount of inflammatory sinus facet disease at multiple levels Moderate neural foraminal stenosis at L5-S1 Thoracic Spine MRI 12/12/19 17:57 IMPRESSION: No acute abnormality in the thoracic spine Toe X-Ray 12/12/19 20:12 IMPRESSION: No acute fracture is identified. Head MRI 12/13/19 00:00 IMPRESSION: No acute intracranial findings. Plan Time Spent: Greater than 30 Minutes Stroke Is this a Stroke Patient?: No Acute Heart Failure - Is this a Heart Failure Patient?: No
[2019-12-17] MEDS: NORMAL SALINE 1000 ML 1,000 ML with POTASSIUM CHLORIDE 20 MEQ, MAGNESIUM SULFATE 8 MEQ,... IV SCH ×5 (19:08)
--- NOTE | 2019-12-18 09:12 | PDOC CONSULTATION ---
Consultation-[facility] Consultation: 12.17.2019 Chart Review completed. Patient presented to the emergency room via EMS with the acute inability to walk due to bilateral leg weakness. She admits that she was well the previous day and evening before going to bed but woke the morning of admission unable to walk due to severe weakness in her bilateral lower extremities. Her lower extremity weakness was accompanied by a mild headache and numbness and tingling in her outer labia and lower extremities. Her lower extremity weakness was associated with malaise, weakness and mild nausea. She denies other associated or accompanying signs and symptoms. She admits a prior similar episode in which her symptoms lasted 3 days and then resolved spontaneously. She initially attributed her symptoms to consuming too much alcohol on the previous evening, but then later changed her mind to thinking that maybe she "hurt something" while she was moving from one residence to another. She has not identified any additional aggravating or ameliorating factors for her lower extremity weakness. In the emergency room she was found to have a normal CT scan of the head, and a contrast MRI of the thoracic and lumbar spine revealed only chronic changes with no explanation for acute bilateral lower extremity dysfunction. Exam by the emergency room provider showed the patient to have sensation and seemingly normal strength and neurologic function of the bilateral lower extremities however when the patient was asked to stand with assistance she was able to stand only for a few seconds and she was unable to walk due to the weakness. Patient was subsequently admitted to hospital for further evaluation treatment. Further radiographic results completed by the attending hospitalist revealed no neurological or musculature explanation for the Patient's symptoms, and lab results showed an active urinary tract infection (with subsequent antibiotic t reatment initiated) and liver and kidney values to be slightly abnormal, which were considered non-contributory to her chief complaint. Her toxicology screen was also positive for marijuana. Provider entered Patient's room to conduct a psychiatric consult. Patient was observed to be allegedly sleeping and did not respond to her name being called or to slight touch. Moreover, Patient was observed to exhibit eye fluttering (eye movement behind her closed eye lids) and facial movement (i.e. wrinkling of her nose, mouth turning upward) in response to touch and her name being called. Patient finally opened her eyes and after introducing myself and explaining my purpose for consultation, Patient minimally participated in the assessment. Patient was asked to sit her bed up by pushing the button on her side rail, and after locating the button and placing her finger on the button, she stated, "I can't." When questioned why she was unable to push the button to raise her bed, she simply flopped her hand back to the bed, and just looked at this provider with no response. She answered some questions as though she was altered (i.e. "walking in the hotel?") in response to certain questions, while being completely lucid in response to other questions (i.e. P: Where did you work before coming in the hospital? PT: "[employer]." Pr:"Does that require a lot of walking?" PT: "Yes.") Patient was observed to be moving her legs, forming bilateral quad muscles, without difficulty. When asked about previous mental health or substance abuse problems, she refused to engage. When asked for her reason for admission, she answered, "my legs hurt." She indicated she wanted the hospital staff to help her but would not indicate how or with what. She refused to answer questions regarding behaviors noted by the nurses in her chart about allegedly falling, actively resisting the nurses attempts to assist her back into bed, and Patient's active attempts despite nurse intervention, to "fall" on the floor and insist she fell. Patient was alert and oriented to person, place, time, and situation, though at times she made attempts to feign altered mental status. She was confronted on her inconsistent presentation and only then would she attend to the conversation. Mood was guarded, devoid of emotion and affect was flat. She denied suicidal / homicidal ideation, intent or plan, and refused to answer regarding his mental health or substance use history. She refused to answer questions regarding psychosis, though nurses advised the Patient reported "seeing little children and dogs" in her room earlier and made concerted efforts to contact the nurse to let her know what she was seeing. Conversational speech was minimal and difficult to assess. Intellectual abilities were estimated to be in the average range. Attention and concentration was within normal limits despite Patient's attempt to portray otherwise. Insight, judgment, and impulse control was poor. Clinical Presentation: Observed patient behavior inconsistent with Patient reported symptoms Negative Radiographic Testing Non-contributory UTI Purposeful resistance to intervention Diagnoses 1. 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 Rule Out Borderline Personality Disorder Impression/Plan: Patient is clear from acute psychiatric services. Patient presented to the ED with an unusual pattern of bilateral leg weakness and numbness and tingling in her labia areas. A comprehensive course of assessment revealed no findings to suggest a medical explanation for the Patient's symptoms. However,and importantly, direct observation of this patient by the nursing staff, and well documented by the same, as well as professional therapies involved (OT, PT) is the Patient's behavior while admitted to the hospital. Patient was observed, despite Patient report, to have full range of motion in both lower extremities, have intact sensation and muscle control and strength, and found to be able to move herself from the bed to the floor and back to the bed independently, though reporting she was unable to do such. She was observed and felt to actively resist attempts to assist her back into bed after allegedly falling out of bed and actively resist assistance to keep in her bed when she was sitting on the edge of the bed trying to "fall" off the bed. Patient was observed by this Provider to attempt to present as altered during evaluation though answered some questions that were not considered direct or confrontational, in a very lucid manner. She was also observed by this Provider to moving her legs and making appropriate quad muscles without difficulty. Patient attempted to feign sleep to avoid the assessment. In Patient's room, two big pink balloons from her mother were observed and Patient's cell phone was lying by her pillow/head when this Provider entered the room. In summary, Patient is felt to be malingering her symptoms in an effort to obtain attention and sympathy from her family and from medical staff. Review of the chart shows she has been a high maintenance Patient, often requesting their assistance by "falling" out of bed despite stating she is unable to move or utilize her legs, then actively resisting their attempts to help her back into the bed. Patient also spontaneously began having "visual hallucinations" of animals and men in her room which she made sure to call the nurse and inform her that she was seeing things. Thus, without any appreciable medical findings, volitional, purposeful and deceitful behavior requiring significant amounts of time from medical professional and staff, and self-reported and a record search of similar incidents in the past, it is determined from a psychiatric standpoint that this Patient, more likely than not, is malingering her symptoms as a way to connect to other people and gain attention and sympathy, particularly given the COVID-19 isolation. Thank you for this referral and please do not hesitate to contact the behavioral health office at [phone] with any questions regarding this assessment.
== END 2019-12-17 21:11 | disposition home or self-care (01) | DRG 880 ==
LOC: ER 09:54 → EH 22:05 → 4S 23:27 → 2N 12-16 13:16 → 2S 12-17 13:06
PROVIDERS: ADMIT Emergency Medicine; ATTEND Family Medicine
DX: F44.7 Conversion disorder with mixed symptom presentation (principal); N39.0 Urinary tract infection, site not specified; F68.13 Factitious disorder imposed on self, with combined psychological and physical signs and symptoms; F60.3 Borderline personality disorder; I10 Essential (primary) hypertension; B96.20 Unspecified Escherichia coli [E. coli] as the cause of diseases classified elsewhere; E66.9 Obesity, unspecified; Z03.818 Encounter for observation for suspected exposure to other biological agents ruled out
CPT/HCPCS: 36415; 70450; 70551; 71045; 72157; 72158; 76705; 80053; 80307; 81001; 82140; 82550; 82553; 83690; 83735; 84100; 84443; 84481; 84484; 85025; 85027; 85610; 85730; 87086; 87088; 87186; 87635; 93005; 93010; 96361; 96365; 96367; 96375; 99285; A9576; C9803; J0696; J1100; J1644; J1885; J2060; J2405; J3411; J3475; J3480; J3490; J7030